=== PATIENT | female | born 1975 ===

== ENCOUNTER 2021-06-27 17:55 | Emergency (ER) | payer OTHER, SELFPAY ==
--- NOTE | ~2021-06-27 | XR_ITS ---
EXAMINATION: XR LUMBOSACRAL SPINE CLINICAL INFORMATION: Pain. COMPARISON: None. TECHNIQUE: Three views of the lumbosacral spine. FINDINGS: There are 5 nonrib-bearing lumbar-type vertebral bodies without evidence of acute compression deformities or malalignment. Posterior elements are maintained. There is moderate disc space narrowing with subcortical sclerosis and facet arthropathy at L5-S1 where there is probably certain degree of central canal stenosis and neural foraminal encroachment. Other disc spaces and neural foraminal are maintained. Moderate stool burden throughout the colon. XR/XR lumbar spine 2-3V IMPRESSION: No acute fractures or malalignment. Moderate degenerative changes at L5-S1 with some degree of neural foraminal encroachment and central canal narrowing which could be better assessed with an MR of the lumbar spine if clinically indicated.
[2021-06-27 18:28] VITALS: BP 142/49; PULSE 75; RESP 16; TEMP 36.5; O2SAT 97; BMI 31.4
--- NOTE | 2021-06-27 20:17 | ED_ITS ---
HPI - Back Pain/Injury General Chief Complaint: Back Pain/Injury Stated Complaint: Back pain Time Seen by Provider: 06/27/21 19:56 Source: patient Mode of arrival: ambulatory Limitations: no limitations History of Present Illness HPI Narrative: Patient presents to ED for chronic back pain since May. Patient states after his lifting heavy object at work patient states she has had back pain ever since. Patient denies any blunt trauma to the back, abdominal pain, nausea, vomiting, fever, chills, dysuria, hematuria, or urinary/bowel incontinence. 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 Patient states back pain radiating down left leg. MD elicited complaint: back pain Related Data Previous Rx's Medication Instructions Recorded ketorolac 10 mg tablet 10 mg PO QID PRN 5 Days #20 tab 06/27/21 oxycodone-acetaminophen 5 mg-325 1 tab PO TID PRN #9 tab 06/27/21 mg tablet (Percocet) prednisone 20 mg tablet 60 mg PO DAILY 5 Days #15 tab 06/27/21 Allergies Allergy/AdvReac Type Severity Reaction Status Date / Time No Known Allergies Allergy Unverified 06/03/20 15:17 [No Known Allergies*] Review of Systems Review of Systems: Yes all other systems are reviewed and are negative Constitutional: Constitutional: Reports as per HPI and Reports no additional constitutional complaints Eyes: Eyes: Reports as per HPI and Reports no additional eye complaints ENT: Reports system reviewed and no additional complaints, except as documented and Reports as per HPI Cardiovascular: Cardiovascular: Reports as per HPI and Reports no additional cardiovascular complaints Respiratory: Respiratory: Reports as per HPI and Reports no additional respiratory complaints Gastrointestinal: Gastrointestinal: Reports as per HPI and Reports no additional gastrointestinal complaints Genitourinary: Genitourinary: Reports no additional female genitourinary complaints and Reports as per HPI Musculoskeletal: Musculoskeletal: Reports no additional musculoskeletal complaints, Reports as per HPI and Reports back pain Neurologic: Reports system reviewed and no additional complaints, except as documented and Reports as per HPI Psychiatric: Psychiatric: Reports no additional psychiatric complaints and Reports as per HPI PMFSH Past Medical History Medical History (Updated 06/27/21 @ 20:22 by JEAN-PIERRE Browne) Asthma Migraines Social History Social History Advance Directives: No Physical Exam Vital Signs: Vital Signs: Last Vital Signs Temp 97.7 F 06/27/21 18:28 Pulse 75 06/27/21 18:28 Resp 16 06/27/21 18:28 BP 142/49 H 06/27/21 18:28 Pulse Ox 97 06/27/21 18:28 Body Mass Index 31.4 Const: General: cooperative, healthy appearing, comfortable, no acute distress, well developed, alert, awake and Physically active Orientation/consciousness: patient oriented x3 HENMT: Head: Yes normal to inspection, Yes No palpable skull fracture present, Yes normocephalic, Yes atraumatic and No abrasion Eyes: General: appearance normal, both eyes and all related structures Neck: Neck: Yes normal visual inspection, Yes full ROM, Yes no lymphadenopathy, Yes no meningeal signs, Yes trachea midline, Yes supple and No tender Chest: Chest palpation & inspection: normal inspection of the chest and normal palpation of entire chest wall Resp: Effort & Inspection: normal respiratory effort and able to speak in complete sentences Auscultation: clear to auscultation bilaterally Cardio: Jugular venous distension: no JVD Heart sounds: S1 normal heart sound present and S2 normal heart sound present GI: Inspection: Yes normal to inspection and No abdominal wall ecchymosis Palpation (GI): Soft to palpation, not firm, nontender, no guarding and not rigid : General: No CVA tenderness and Yes no CVA tenderness Back/Spine/Pelvis: Other: Patient has good rectal tone on rectal exam. Negative for saddle anesthesia. Patient had sensation throughout saddle. Jean-Pierre de los santos has normal gait. Back: no CVA tenderness, No CVA tenderness and back tenderness (Lumbar spine tenderness) Skin: General skin exam: no rashes or lesions noted and elasticity normal Neuro: General: patient oriented x3, gait normal, no meningeal signs and CN's II-XI intact bilaterally Cranial nerves: Yes CN's II-XII intact bilaterally Extrem: General: Yes normal to inspection and Yes full ROM Psych: Appearance: grossly normal, well kempt and not disheveled Course Course Course Narrative: Sent for lumbar spine x-ray. Reevaluation(s) Reevaluation #1: Lumbar spine x-ray shows severe arthritis with encroachment. History, physical exam, and x-ray results discussed with Dr. Acevedo and we both agreed patient presentation does not indicate cauda equina syndrome. Not suspecting any spinal abscess. Patient denies any IV drug use Time: 20:21 MDM - Back Pain/Injury MDM Narrative Medical decision making narrative: Lumbar radiculopathy Discharge Plan Discharge Clinical Impression: Lumbar radiculopathy Patient Disposition: Home, Self-Care Instructions: Lumbar Radiculopathy (ED) Additional Instructions: Return to the ED immediately for any urinary/bowel incontinence, paralysis of lower extremity, numbness/tingling, inability to walk, flank pain, fever, chills, nausea, vomiting, abdominal pain, dysuria, hematuria, or any other concerning symptoms. Please follow-up with PCP you may need MRI to evaluate for possible nerve impingement. Prescriptions: New ketorolac 10 mg tablet 10 mg PO QID PRN (Reason: pain) 5 Days Qty: 20 RF: 0 prednisone 20 mg tablet 60 mg PO DAILY 5 Days Qty: 15 RF: 0 oxycodone-acetaminophen [Percocet] 5-325 mg tablet 1 tab PO TID PRN (Reason: pain) Qty: 9 RF: 0 Stand Alone Forms: Work/School Release Interventions: ED Discharge Assessment Last Done: 06/27/21 20:47 Discharge Date/Time: 06/27/21 20:48 Print Language: Khmer
[2021-06-27] MEDS: oxyCODONE HCl Immed Release 5 MG TABLET PO (20:38)
[2021-06-27] MEDS: predniSONE 20 MG TABLET 60 MG PO (20:38)
[2021-06-27] MEDS: Ketorolac Tromethamine 15 MG/ML VIAL 30 MG IM (20:39)
== END 2021-06-27 20:48 | disposition home or self-care (01) ==
PROVIDERS: Emergency Provider Internal Medicine; PCP Internal Medicine
DX: M47.26 Other spondylosis with radiculopathy, lumbar region (principal)
CPT/HCPCS: 72100; 96372; 99284; J1885

== ENCOUNTER 2021-09-19 11:10 | Outpatient (REF) | payer OTHER, SELFPAY ==
[2021-09-19 12:57] LABS: COVID-19 Test Negative (Negative); IDNOW Serial# 55D5AD1C
== END 2021-09-19 11:11 | disposition home or self-care (01) ==
LOC: HO.LAB 11:10
PROVIDERS: Visit Provider Internal Medicine
DX: Z20.822 Contact with and (suspected) exposure to COVID-19 (principal)
CPT/HCPCS: 36415; 87635; C9803

== ENCOUNTER 2021-09-30 09:00 | Outpatient (RCR) | payer OTHER, SELFPAY | END 2021-10-26 14:37 | disposition home or self-care (01) | LOC: HO.PT 09:00 | PROVIDERS: Visit Provider Nurse Practitioner Family | DX: R26.81 Unsteadiness on feet (principal); M54.50 Low back pain, unspecified | CPT/HCPCS: 97110; 97140; 97161 ==

== ENCOUNTER 2021-11-22 14:32 | Emergency (ER) | payer OTHER, SELFPAY ==
--- NOTE | ~2021-11-22 | XR_ITS ---
EXAMINATION: XR CHEST CLINICAL INFORMATION: Upper respiratory tract infection COMPARISON: Previous chest x-ray March 2019 TECHNIQUE: Frontal view of the chest was obtained. FINDINGS: No significant abnormality is noted involving the heart, lungs, mediastinum, bony thorax or soft tissues. XR/XR chest 1V IMPRESSION: Unremarkable examination.
[2021-11-22 15:33] VITALS: BP 130/67; PULSE 91; RESP 18; TEMP 36.4; O2SAT 98; BMI 29.0
--- NOTE | 2021-11-22 15:36 | ECG_ITS ---
Test Reason : CHEST PAIN Blood Pressure : / mmHG Vent. Rate : 087 BPM Atrial Rate : 087 BPM P-R Int : 158 ms QRS Dur : 084 ms QT Int : 366 ms P-R-T Axes : 019 -18 022 degrees QTc Int : 440 ms Normal sinus rhythm Normal ECG No previous ECGs available Referred By: Generic ED Physician Electronically Signed By:GAURAV ALCALA MD
[2021-11-22 16:27] LABS: MANUAL DIFF FLAG NO
[2021-11-22 16:33] LABS: Basophils Percent Auto 0.3 % (0-2); Eosinophils Percent Auto 8.8 % (0-4); Hematocrit 39.6 % (37.0-47.0); Hemoglobin 12.7 g/dl (12.0-16.0); Imm Gran Abs Auto 0.06 X10*3/uL (0.00-0.03); Imm Gran Pct Auto 0.5 % (0.0-0.4); Lymphocytes Absolute Auto 1.5 X10*3/uL (1.2-4.9); Lymphocytes Percent Auto 13.2 % (20-40); Mean Corpuscular HGB Conc 32.1 g/dl (31.0-35.0); Mean Platelet Volume 10.8 fL (9.4-12.3); Monocytes Absolute Auto 1.2 X10*3/uL (0.1-1.2); Monocytes Percent Auto 10.6 % (2-11); Neutrophils Absolute Auto 7.8 x10*3/uL (2.0-8.3); Neutrophils Percent Auto 66.6 % (45-73); Platelet Count 214 X10*3/uL (160-400); Red Blood Count 4.89 X10*6/uL (4.20-5.50); Red Cell Distribution Width 15.5 % (11.0-16.0); White Blood Count 11.7 X10*3/uL (4.8-10.8)
[2021-11-22 16:41] LABS: Anion Gap 12 (12-20); Blood Urea Nitrogen 10 mg/dL (9-16); Calcium 9.3 mg/dL (8.4-10.2); Carbon Dioxide 28 mmol/L (22-29); Chloride 105 mmol/L (96-108); Creatinine Clr Calc Pharmacy 97.2; Estimated Glomerular Filt Rate > 60; Glucose Random 100 mg/dL (60-115); Potassium 4.6 mmol/L (3.3-5.1); Sodium 140 mmol/L (135-145)
[2021-11-22 16:43] LABS: COVID-19 Test Negative (Negative)
[2021-11-22 19:56] VITALS: BP 134/73; PULSE 91; RESP 18; TEMP 36.9; O2SAT 98
[2021-11-22 20:00] VITALS: BP 125/62; PULSE 81; RESP 16; TEMP 36.8; O2SAT 100
--- NOTE | 2021-11-22 20:01 | PC.NURSE ---
pt a&ox3, cough started yesterday, now having 8/10 left flank pain while coughing, pt denies chest pain/sob, pt last ate this morning, migraine started ~1hr ago in waiting room w nausea - tried eating a doughnut in waiting room & caused pt to vomit, vss, pending provider.
--- NOTE | 2021-11-22 20:08 | ED.GENADULT ---
HPI - General Adult General Chief complaint: General Medical Stated complaint: CP/SOB/Cough Time Seen by Provider: 11/22/21 20:08 Source: patient Mode of arrival: ambulatory Limitations: no limitations History of Present Illness HPI narrative: Patient with coughing mostly dry cough for last few days feel like cold-like symptoms no shortness of breath has body aches low-grade fever Related Data Previous Rx's Medication Instructions Recorded ketorolac 10 mg tablet 10 mg PO QID PRN 5 Days #20 tab 06/27/21 oxycodone-acetaminophen 5 mg-325 1 tab PO TID PRN #9 tab 06/27/21 mg tablet (Percocet) prednisone 20 mg tablet 60 mg PO DAILY 5 Days #15 tab 06/27/21 amoxicillin 875 mg-potassium 1 tab PO BID #20 tab 11/22/21 clavulanate 125 mg tablet Allergies Allergy/AdvReac Type Severity Reaction Status Date / Time No Known Allergies Allergy Unverified 06/03/20 15:17 [No Known Allergies*] Review of Systems Review of Systems: Yes all other systems are reviewed and are negative [facility] Past Medical History Medical History Asthma Migraines Social History Social History Alcohol intake: never Patient Tobacco Use Status: Former Tobacco user Use of substances other than those prescribed or required for medical reasons: No Advance Directives: No Advance Directives Information Provided: Yes Physical Exam ED Vital Signs: Vital Signs - 24 hr 11/22/21 15:33 11/22/21 19:56 Temperature 97.6 F 98.4 F Pulse Rate 91 91 Respiratory Rate 18 18 Blood Pressure 130/67 134/73 Pulse Oximetry 98 98 BMI result Body Mass Index 29.0 Appearance: Alert. Oriented X3. No acute distress. Eyes:no pallor/icterus ENT: Pharynx normal. Oral Mucosa moist Neck: Normal inspection. Neck supple. CVS: Normal heart rate and rhythm. Pulses normal. Respiratory: No respiratory distress. Equal air entry bilateral, no wheezing/rales/rhonchi Abdomen: Soft and nontender. Bowel sounds are present, no mass palpable, Skin: Skin warm and dry. Normal skin color. Normal skin turgor. Extremities: No lower extremity edema. No calf tenderness Neuro: Oriented X 3. Medical Decision Making Lab Data Lab results reviewed: Yes I reviewed the patient's lab results. Result diagrams: 11/22/21 16:17 11/22/21 16:17 Labs: Lab Results 11/22/21 11/22/21 11/22/21 Range/Units 16:17 16:17 16:17 WBC 11.7 H (4.8-10.8) X10*3/uL RBC 4.89 (4.20-5.50) X10*6/uL Hgb 12.7 (12.0-16.0) g/dl Hct 39.6 (37.0-47.0) % MCV 81.0 (80.0-98.0) fL MCH 26.0 L (27.0-33.0) pg MCHC 32.1 (31.0-35.0) g/dl RDW 15.5 (11.0-16.0) % Plt Count 214 (160-400) X10*3/uL MPV 10.8 (9.4-12.3) fL Immature Gran % (Auto) 0.5 H (0.0-0.4) % Neut % (Auto) 66.6 (45-73) % Lymph % (Auto) 13.2 L (20-40) % Grundy % (Auto) 10.6 (2-11) % Eos % (Auto) 8.8 H (0-4) % Baso % (Auto) 0.3 (0-2) % Lymph # (Auto) 1.5 (1.2-4.9) X10*3/uL Grundy # (Auto) 1.2 (0.1-1.2) X10*3/uL Eos # (Auto) 1.0 H (0.0-0.4) X10*3/uL Baso # (Auto) 0.0 (0.0-0.2) X10*3/uL Abs Immat Gran (auto) 0.06 H (0.00-0.03) X10*3/uL Absolute Neuts (auto) 7.8 (2.0-8.3) x10*3/uL Absolute Nucleated RBC 0.000 (0.0-0.012) X10*3/uL Nucleated RBC % (auto) 0.0 (0.0-0.2) /100WBC Sodium 140 (135-145) mmol/L Potassium 4.6 (3.3-5.1) mmol/L Chloride 105 (96-108) mmol/L Carbon Dioxide 28 (22-29) mmol/L Anion Gap 12 (12-20) BUN 10 (9-16) mg/dL Creatinine 0.66 (0.5-1.4) mg/dL Estim Creat Clear Calc 97.2 Estimated GFR > 60 Random Glucose 100 (60-115) mg/dL Calcium 9.3 (8.4-10.2) mg/dL Urine Color Urine Appearance Urine pH (5.0-8.0) Ur Specific Keystone (1.005-1.025) Urine Protein (NEG-TRACE) MG/DL Urine Glucose (UA) (NEG) MG/DL Urine Ketones (NEG) MG/DL Urine Blood (NEG) Urine Nitrite (NEG) Ur Leukocyte Esterase (NEG) Urine RBC (0) /HPF Urine WBC (0-4) /HPF Ur Squamous Epith Cells /LPF Urine Bacteria /LPF Urine Test (NEGATIVE) COVID-19 (CARI) Negative (Negative) COVID-19 Clin Com See Note Influenza Type A (MYLENE) (Negative) Influenza Type B (MYLENE) (Negative) Influenza A & B Note 11/22/21 11/22/21 11/22/21 Range/Units 20:27 20:44 20:44 WBC (4.8-10.8) X10*3/uL RBC (4.20-5.50) X10*6/uL Hgb (12.0-16.0) g/dl Hct (37.0-47.0) % MCV (80.0-98.0) fL MCH (27.0-33.0) pg MCHC (31.0-35.0) g/dl RDW (11.0-16.0) % Plt Count (160-400) X10*3/uL MPV (9.4-12.3) fL Immature Gran % (Auto) (0.0-0.4) % Neut % (Auto) (45-73) % Lymph % (Auto) (20-40) % Grundy % (Auto) (2-11) % Eos % (Auto) (0-4) % Baso % (Auto) (0-2) % Lymph # (Auto) (1.2-4.9) X10*3/uL Grundy # (Auto) (0.1-1.2) X10*3/uL Eos # (Auto) (0.0-0.4) X10*3/uL Baso # (Auto) (0.0-0.2) X10*3/uL Abs Immat Gran (auto) (0.00-0.03) X10*3/uL Absolute Neuts (auto) (2.0-8.3) x10*3/uL Absolute Nucleated RBC (0.0-0.012) X10*3/uL Nucleated RBC % (auto) (0.0-0.2) /100WBC Sodium (135-145) mmol/L Potassium (3.3-5.1) mmol/L Chloride (96-108) mmol/L Carbon Dioxide (22-29) mmol/L Anion Gap (12-20) BUN (9-16) mg/dL Creatinine (0.5-1.4) mg/dL Estim Creat Clear Calc Estimated GFR Random Glucose (60-115) mg/dL Calcium (8.4-10.2) mg/dL Urine Color STRAW Urine Appearance CLEAR Urine pH 6.0 (5.0-8.0) Ur Specific Key[place] 1.020 (1.005-1.025) Urine Protein NEG (NEG-TRACE) MG/DL Urine Glucose (UA) NEG (NEG) MG/DL Urine Ketones NEG (NEG) MG/DL Urine Blood 1+ H (NEG) Urine Nitrite NEG (NEG) Ur Leukocyte Esterase NEG (NEG) Urine RBC 1-4 (0) /HPF Urine WBC 0-2 (0-4) /HPF Ur Squamous Epith Cells 2+ /LPF Urine Bacteria NONE /LPF Urine Test NEGATIVE (NEGATIVE) COVID-19 (CARI) (Negative) COVID-19 Clin Com Influenza Type A (MYLENE) Negative (Negative) Influenza Type B (MYLENE) Negative (Negative) Influenza A & B Note See Note Discharge Plan Discharge Clinical Impression: Acute bronchitis Patient Disposition: Home, Self-Care Instructions: Acute Bronchitis (ED) Additional Instructions: Drink plenty of fluid Antibiotic as advised Prescriptions: New amoxicillin-pot clavulanate 875-125 mg tablet 1 tab PO BID Qty: 20 0RF No Action ketorolac 10 mg tablet 10 mg PO QID PRN (Reason: pain) 5 Days Qty: 20 0RF Rx Instructions: patient received IM 30 toradol in the ED. prednisone 20 mg tablet 60 mg PO DAILY 5 Days Qty: 15 0RF oxycodone-acetaminophen [Percocet] 5-325 mg tablet 1 tab PO TID PRN (Reason: pain) Qty: 9 0RF Rx Instructions: side effect is drowsiness. Do not take at work or while driving. Interventions: ED Discharge Assessment Last Done: 11/22/21 20:56 Discharge Date/Time: 11/22/21 20:59
--- NOTE | 2021-11-22 20:42 | PC.NURSE ---
pt a&ox3, vss, pt resting quietly, urine sent to lab, reports decrease in pain (5/10), nausea intermittent, will continue to monitor.
[2021-11-22 20:47] LABS: Influenza A Negative (Negative); Influenza B2 Negative (Negative)
[2021-11-22 20:51] LABS: Appearance Urine CLEAR; Color Urine STRAW; Glucose Urine UA NEG (NEG); Leukocyte Esterase Urine NEG (NEG); Nitrite Urine NEG (NEG); UACC Culture Trigger NO; Urine Blood 1+ (NEG); Urine Ketones NEG (NEG); Urine Protein NEG (NEG-TRACE)
[2021-11-22 20:54] LABS: UPreg QC Valid YES; Urine Pregnancy NEGATIVE (NEGATIVE)
[2021-11-22 20:58] LABS: Squamous Epithelial Cell Urine 2+ /LPF; WBC Urine 0-2 /HPF (0-4)
[2021-11-22] MEDS: Amoxicillin/Potassium Clav 875 MG TABLET PO (20:58)
--- NOTE | 2021-11-22 20:58 | PC.NURSE ---
pt medicated per order
== END 2021-11-22 20:59 | disposition home or self-care (01) ==
PROVIDERS: Emergency Provider Internal Medicine; PCP Internal Medicine
DX: J20.9 Acute bronchitis, unspecified (principal); Z20.822 Contact with and (suspected) exposure to COVID-19
CPT/HCPCS: 71045; 80048; 81001; 81025; 85025; 87502; 87635; 93005; 99283; 99284

== ENCOUNTER 2022-01-23 21:19 | Emergency (ER) | payer OTHER, SELFPAY ==
--- NOTE | 2022-01-23 | ECG_ITS ---
Test Reason : CHEST PAIN Blood Pressure : / mmHG Vent. Rate : 065 BPM Atrial Rate : 065 BPM P-R Int : 176 ms QRS Dur : 086 ms QT Int : 420 ms P-R-T Axes : 022 -14 019 degrees QTc Int : 436 ms Normal sinus rhythm Normal ECG When compared with ECG of 22-NOV-2021 16:06, No significant change was found Referred By: Generic ED Physician Electronically Signed By:GAURAV ALCALA MD
--- NOTE | ~2022-01-23 | XR_ITS ---
EXAMINATION: XR CHEST CLINICAL INFORMATION: Cough COMPARISON: 11/22/2021 TECHNIQUE: Frontal view of the chest was obtained. FINDINGS: The lungs are well expanded. There is no focal consolidation, edema, or effusion. No pneumothorax. The cardiomediastinal silhouette is within normal limits. No acute osseous abnormality. XR/XR chest 1V IMPRESSION: Clear lungs.
[2022-01-23 22:43] VITALS: BP 131/77; PULSE 68; RESP 16; TEMP 36.6; O2SAT 98; BMI 30.8
--- NOTE | 2022-01-24 01:02 | ED.URI ---
HPI - URI/Sore Throat General Chief Complaint: Upper Respiratory Symptoms Stated Complaint: Cough/Chest pain Time Seen by Provider: 01/24/22 00:36 Source: patient Mode of arrival: ambulatory Limitations: no limitations History of Present Illness HPI Narrative: Patient comes to the emergency room complaining of cough for 2 weeks. Patient denies chest pain, no shortness of breath. Patient denies any exposure to COVID or influenza patients. Patient states that a few months ago patient was diagnosed with bronchitis. Patient did recover. Patient has been using her inhaler more than usual, last time she received treatment was well over 24 hours ago. Otherwise patient has no symptoms, denies fever chills, no vomiting or diarrhea. Patient is an immunized for COVID-19 Related Data Previous Rx's Medication Instructions Recorded ketorolac 10 mg tablet 10 mg PO QID PRN 5 Days #20 tab 06/27/21 oxycodone-acetaminophen 5 mg-325 1 tab PO TID PRN #9 tab 06/27/21 mg tablet (Percocet) prednisone 20 mg tablet 60 mg PO DAILY 5 Days #15 tab 06/27/21 amoxicillin 875 mg-potassium 1 tab PO BID #20 tab 11/22/21 clavulanate 125 mg tablet prednisone 50 mg tablet 50 mg PO DAILY #5 tab 01/24/22 Allergies Allergy/AdvReac Type Severity Reaction Status Date / Time No Known Allergies Allergy Unverified 06/03/20 15:17 [No Known Allergies*] Review of Systems Review of Systems: Constitutional : No Weight loss, No Fever, No Chills, No Night Sweats, No Fatigue, No Malaise ENT/Mouth : No Hearing loss, No Ear Pain, No Nasal Congestion, No Sinus Pain, No Hoarseness, No sore throat, No Rhinorrhea, No Swallowing Difficulty Eyes: No Eye Pain, No Swelling, No Redness, No Foreign Body, No Discharge, No Vision Changes Cardiovascular : No Chest Pain, No SOB, No Dyspnea on Exertion, No Orthopnea, No Edema, No Palpitations Respiratory : Complaining of dry Cough, No Sputum, No Wheezing, No Smoke Exposure, No Dyspnea Gastrointestinal : No Nausea, No Vomiting, No Diarrhea, No Constipation, No abdominal Pain, No Hematochezia, No Melena Genitourinary : no irregular bleeding, No Dysuria, No Urinary Frequency, No Hematuria, No Urinary Incontinence, No Urgency, No Flank Pain, No Urinary Flow Changes, No Hesitancy Musculoskeletal : No joint pain, No Myalgias, No Joint Swelling Skin : No Skin Lesions, No rash Neuro : No Weakness, No Numbness, No Paresthesias, No Loss of Consciousness, No Dizziness, No Headache Psych : No Anxiety/Panic, No Depression, No SI/HI/AH/VH, No Social Issues, Heme/Lymph: No Bruising, No Bleeding,No Lymphadenopathy Endocrine : No Polyuria, No Polydipsia, No Temperature Intolerance REPLACED BY [facility] Past Medical History Medical History Asthma Migraines Social History Social History Alcohol intake: never Patient Tobacco Use Status: Former Tobacco user Advance Directives: No Physical Exam Vital Signs: Vital Signs: Last Vital Signs Temp 97.8 F 01/23/22 22:43 Pulse 68 01/23/22 22:43 Resp 16 01/23/22 22:43 BP 131/77 01/23/22 22:43 Pulse Ox 98 01/23/22 22:43 BMI result Body Mass Index 30.8 Const: Other: Appearance: Alert. Oriented X3. No acute distress. Well-appearing Eyes: Pupils equal, round and reactive to light. ENT: Pharynx normal. Neck: Normal inspection. Neck supple. No lymph nodes noted. No crepitus CVS: Normal heart rate and rhythm. Pulses normal. Normal S1 and S2 Respiratory: No respiratory distress. Breath sounds normal. No Wheezing. No rales Abdomen: Soft and nontender. No rigidity. No distention. Skin: Skin warm and dry. Normal skin color. Normal skin turgor. Extremities: No lower extremity edema. No Lacerations. No Rash Neuro: Oriented X 3. No motor deficit. No sensory deficit. Moving all extremities. No slurred speech. CN 2 through 12 grossly intact Psych: calm, cooperative, normal affect Course Course Course Narrative: Patient's physical exam is unremarkable. COVID and flu test pending and a chest x-ray. Patient likely having viral bronchitis. I discussed with the patient that she tested positive for COVID-19. As mentioned above, patient is an immunized. Patient has been symptomatic for 14 days, at this time, she does not qualify for oral antivirals or monoclonal antibodies. Patient's oxygen saturation is 98% on room air, even with exertion in her room. Patient is not hypoxic. However, patient does have history of asthma, using her in nebulization treatments more often. Patient would benefit from prednisone. At this time, patient does not need a breathing treatment. MDM - URI/Sore Throat Lab Data Labs: Lab Results 01/24/22 01/24/22 Range/Units 00:45 00:45 COVID-19 (CARI) Positive A (Negative) COVID-19 Clin Com See Note Influenza Type A (MYLENE) Negative (Negative) Influenza Type B (MYLENE) Negative (Negative) Influenza A & B Note See Note Imaging Data Chest x-ray: Radiologist's impression: FINDINGS: The lungs are well expanded. There is no focal consolidation, edema, or effusion. No pneumothorax. The cardiomediastinal silhouette is within normal limits. No acute osseous abnormality. XR/XR chest 1V IMPRESSION: Clear lungs. Discharge Plan Discharge Clinical Impression: COVID-19 Patient Disposition: Home, Self-Care Instructions: COVID-19 (Coronavirus Disease 2019) (ED) Additional Instructions: You need to quarantine for 5 days. Please have your direct family tested for COVID-19. Please follow-up with your primary care physician tomorrow. If you have any worsening or new symptoms, please return to the emergency room or call 911 Prescriptions: New prednisone 50 mg tablet 50 mg PO DAILY Qty: 5 0RF No Action ketorolac 10 mg tablet 10 mg PO QID PRN (Reason: pain) 5 Days Qty: 20 0RF Rx Instructions: patient received IM 30 toradol in the ED. prednisone 20 mg tablet 60 mg PO DAILY 5 Days Qty: 15 0RF oxycodone-acetaminophen [Percocet] 5-325 mg tablet 1 tab PO TID PRN (Reason: pain) Qty: 9 0RF Rx Instructions: side effect is drowsiness. Do not take at work or while driving. amoxicillin-pot clavulanate 875-125 mg tablet 1 tab PO BID Qty: 20 0RF
[2022-01-24 01:11] LABS: IDNOW Serial# 08D9AD1C; Influenza A Negative (Negative); Influenza B2 Negative (Negative)
[2022-01-24 01:12] LABS: COVID-19 Test Positive (Negative)
== END 2022-01-24 01:52 | disposition home or self-care (01) ==
PROVIDERS: Emergency Provider Emergency Medicine
DX: U07.1 COVID-19 (principal); R05.9 Cough, unspecified; R07.89 Other chest pain; Z79.899 Other long term (current) drug therapy; Z87.891 Personal history of nicotine dependence
CPT/HCPCS: 71045; 87502; 87635; 93005; 99283

== ENCOUNTER 2022-02-20 18:08 | Emergency (ER) | payer OTHER, SELFPAY ==
--- NOTE | ~2022-02-20 | CT_ITS ---
EXAMINATION: CTA CHEST PE STUDY CLINICAL INFORMATION: Elevated D-dimer. PE? COMPARISON: Chest x-ray today TECHNIQUE: Prior to contrast administration, noncontrast localization images were obtained. After the administration of 62 mL of Omnipaque nonionic IV contrast, contiguous thin slice helical images were obtained through the thorax. Reformatted MIP images in the coronal and sagittal planes were obtained at the acquisition workstation. This CT examination was performed using dose optimization techniques as appropriate, variously including the following: *Automated exposure control *Adjustment of mA and/or kV according to patient size (this includes techniques or standardized protocols for targeted exams where dose is matched to indication/reason for exam; i.e. extremities or head) *Use of iterative reconstruction technique DLP: 283 mGy-cm. FINDINGS: The bolus timing on this study was acceptable for visualization of the pulmonary arterial tree. There are no intraluminal pulmonary arterial filling defects present to suggest pulmonary embolism. Inferior distal branch vessels are less well delineated due to respiratory motion artifact Mild dependent atelectatic change. No abnormal pulmonary nodules or masses are appreciated. No significant hilar or mediastinal adenopathy. There is no evidence of pleural effusion or pneumothorax. The heart is normal in size. No evidence of ventricular septal bowing or right heart strain. Great vessels are normal. Otherwise the mediastinum is unremarkable. There is no pericardial effusion or pericardial thickening. Limited evaluation of the upper abdominal viscera is unremarkable. CT/CT angio chest PE protocol IMPRESSION: Although the inferior aspect of the chest is degraded by respiratory motion artifact, I do not appreciate any evidence for central or segmental pulmonary emboli. Mild basilar atelectasis noted. VTE: Negative
--- NOTE | ~2022-02-20 | XR_ITS ---
EXAMINATION: XR CHEST CLINICAL INFORMATION: Resolved SOB. COMPARISON: None TECHNIQUE: Frontal view of the chest was obtained. FINDINGS: No significant abnormality is noted involving the heart, lungs, mediastinum, bony thorax or soft tissues. XR/XR chest 1V IMPRESSION: Unremarkable chest examination.
[2022-02-20 18:16] VITALS: BP 157/77; PULSE 77; RESP 18; TEMP 36.6; O2SAT 97; BMI 30.8
--- NOTE | 2022-02-20 18:17 | ECG_ITS ---
Test Reason : PALPITATIONS Blood Pressure : / mmHG Vent. Rate : 073 BPM Atrial Rate : 073 BPM P-R Int : 156 ms QRS Dur : 090 ms QT Int : 398 ms P-R-T Axes : 031 -13 023 degrees QTc Int : 438 ms Normal sinus rhythm Normal ECG When compared with ECG of 23-JAN-2022 21:58, No significant change was found Referred By: Generic ED Physician Electronically Signed By:CONCEPCION DONOVAN
[2022-02-20 19:20] LABS: MANUAL DIFF FLAG NO
[2022-02-20 19:23] LABS: Basophils Percent Auto 0.2 % (0-2); Eosinophils Absolute Auto 0.4 X10*3/uL (0.0-0.4); Eosinophils Percent Auto 4.1 % (0-4); Hematocrit 35.9 % (37.0-47.0); Hemoglobin 11.6 g/dl (12.0-16.0); Imm Gran Abs Auto 0.04 X10*3/uL (0.00-0.03); Imm Gran Pct Auto 0.4 % (0.0-0.4); Lymphocytes Percent Auto 19.9 % (20-40); Mean Corpuscular HGB Conc 32.3 g/dl (31.0-35.0); Mean Corpuscular Hemoglobin 25.6 pg (27.0-33.0); Mean Corpuscular Volume 79.2 fL (80.0-98.0); Mean Platelet Volume 10.2 fL (9.4-12.3); Monocytes Absolute Auto 1.2 X10*3/uL (0.1-1.2); Monocytes Percent Auto 11.7 % (2-11); Neutrophils Absolute Auto 6.3 x10*3/uL (2.0-8.3); Neutrophils Percent Auto 63.7 % (45-73); Platelet Count 275 X10*3/uL (160-400); Red Blood Count 4.53 X10*6/uL (4.20-5.50); Red Cell Distribution Width 15.5 % (11.0-16.0); White Blood Count 9.9 X10*3/uL (4.8-10.8)
[2022-02-20 19:42] VITALS: BP 160/50; PULSE 75; RESP 22; TEMP 37.1; O2SAT 99
[2022-02-20 19:46] LABS: Alanine Aminotransferase 16 U/L (0-31); Albumin Level 3.9 g/dL (3.5-5.0); Alkaline Phosphatase 69 U/L (39-117); Anion Gap 11 (12-20); Aspartate Amino Transferase 15 U/L (5-31); Bilirubin Total 0.2 mg/dL (0.0-1.0); Blood Urea Nitrogen 8 mg/dL (9-16); Calcium 8.9 mg/dL (8.4-10.2); Carbon Dioxide 27 mmol/L (22-29); Chloride 105 mmol/L (96-108); Creatinine Clr Calc Pharmacy 96.1; Estimated Glomerular Filt Rate > 60; Glucose Random 94 mg/dL (60-115); Sodium 139 mmol/L (135-145); Total Protein 6.8 g/dL (6.5-8.0)
[2022-02-20 19:51] LABS: Troponin-I High Sensitivity < 3.5 ng/L (<3.5-17.0)
[2022-02-20 20:15] LABS: B Type Natriuretic Peptide 25 pg/mL (<100)
[2022-02-20 20:19] LABS: TSH reflex Free T4 2.53 uIU/mL (0.32-4.0)
[2022-02-20 20:22] LABS: Prothrombin Time 11.4 SEC (9.9-13.0)
[2022-02-20 20:24] LABS: D Dimer High Sensitivity 502 NG/ML
[2022-02-20 20:25] LABS: Partial Thromboplastin Time 28.7 SEC (24.1-38.0)
[2022-02-20 20:26] LABS: COVID-19 Test Negative (Negative)
--- NOTE | 2022-02-20 20:41 | ED_ITS ---
HPI - General Adult General Chief complaint: Arrhythmia/Palpitations Stated complaint: Palpitations Time Seen by Provider: 02/20/22 19:31 Source: patient Mode of arrival: ambulatory Limitations: no limitations History of Present Illness HPI narrative: 47-year-old female presents to ED for palpitations for 1 week. Patient states shortness of breath when she feels the palpitations. Patient denies any slurred speech, facial droop, paralysis of extremities, headache, dizziness, coughing up blood, leg swelling, recent long travel, recent surgery, or any estrogen hormonal use. Patient denies any recent trauma to the chest. Related Data Previous Rx's Medication Instructions Recorded ketorolac 10 mg tablet 10 mg PO QID PRN 5 Days #20 tab 06/27/21 oxycodone-acetaminophen 5 mg-325 1 tab PO TID PRN #9 tab 06/27/21 mg tablet (Percocet) prednisone 20 mg tablet 60 mg PO DAILY 5 Days #15 tab 06/27/21 amoxicillin 875 mg-potassium 1 tab PO BID #20 tab 11/22/21 clavulanate 125 mg tablet prednisone 50 mg tablet 50 mg PO DAILY #5 tab 01/24/22 Allergies Allergy/AdvReac Type Severity Reaction Status Date / Time No Known Allergies Allergy Unverified 06/03/20 15:17 [No Known Allergies*] Review of Systems Review of Systems: palpitations and shortness of breath only she has palpitations for one week. Yes all other systems are reviewed and are negative PMF Past Medical History Medical History Asthma Migraines Social History Social History Alcohol intake: never Patient Tobacco Use Status: Former Tobacco user Advance Directives: No Advance Directives Information Provided: No Physical Exam ED Vital Signs: Vital Signs - 24 hr 02/20/22 18:16 02/20/22 19:42 02/20/22 21:57 Temperature 97.9 F 98.7 F 98.7 F Pulse Rate 77 75 68 Respiratory Rate 18 22 H 16 Blood Pressure 157/77 H 160/50 H 131/76 Pulse Oximetry 97 99 99 02/21/22 00:20 Temperature 98.4 F Pulse Rate 64 Respiratory Rate 15 Blood Pressure 113/63 Pulse Oximetry 96 BMI result Body Mass Index 30.8 Const General: cooperative, healthy appearing, comfortable, no acute distress, well developed, alert, awake and Physically active Orientation/consciousness: patient oriented x3 [facility] Head: Yes normal to inspection, Yes No palpable skull fracture present, Yes normocephalic, Yes atraumatic and No abrasion Eyes General: appearance normal, both eyes and all related structures Neck Neck: Yes normal visual inspection, Yes full ROM, Yes no lymphadenopathy, Yes no meningeal signs, Yes trachea midline, Yes supple, No anterior neck swelling and No tender Chest Chest palpation & inspection: normal inspection of the chest and normal palpation of entire chest wall Resp Effort & Inspection: normal respiratory effort and able to speak in complete sentences Auscultation: clear to auscultation bilaterally Cardio Jugular venous distension: no JVD Heart sounds: S1 normal heart sound present and S2 normal heart sound present GI Inspection: Yes normal to inspection and No abdominal wall ecchymosis Palpation (GI): Soft to palpation, not firm, nontender, no guarding and not rigid General: No CVA tenderness and Yes no CVA tenderness Back/Spine/Pelvis Back: no CVA tenderness, No CVA tenderness and No back tenderness Skin General skin exam: no rashes or lesions noted and elasticity normal Neuro General: patient oriented x3, gait normal, no meningeal signs and CN's II-XI intact bilaterally Cranial nerves: Yes CN's II-XII intact bilaterally Extrem Other: Lower extremities negative for swelling, pitting edema, or calf tenderness General: Yes normal to inspection and Yes full ROM Psych Appearance: grossly normal and well kempt Course Course Course Narrative: Patient will have labs, EKG, thyroid level and D-dimer ordered due to recent COVID diagnosis there is no risk of pulmonary embolus. Patient well-appearing. Patient vital signs stable. Reevaluation(s) Reevaluation #1: Troponin negative after 1 week. EKG negative STEMI. BNP negative. Chest x-ray negative for pneumonia. Negative for signs of fluid overload CHF. D-dimer positive. COVID negative. Was sent for chest CTA. Time: 20:49 Reevaluation #2: Chest CTA negative. Second troponin negative. Thyroid level normal. Patient is safe for discharge. Diagnosis palpitation Time: 00:00 Medical Decision Making [facility] Narrative Medical decision making narrative: Palpitation Lab Data Result diagrams: 02/20/22 19:15 02/20/22 19:15 Labs: Lab Results 02/20/22 02/20/22 02/20/22 Range/Units 19:15 19:15 19:15 WBC 9.9 (4.8-10.8) X10*3/uL RBC 4.53 (4.20-5.50) X10*6/uL Hgb 11.6 L (12.0-16.0) g/dl Hct 35.9 L (37.0-47.0) % MCV 79.2 L (80.0-98.0) fL MCH 25.6 L (27.0-33.0) pg MCHC 32.3 (31.0-35.0) g/dl RDW 15.5 (11.0-16.0) % Plt Count 275 D (160-400) X10*3/uL MPV 10.2 (9.4-12.3) fL Immature Gran % (Auto) 0.4 (0.0-0.4) % Neut % (Auto) 63.7 (45-73) % Lymph % (Auto) 19.9 L (20-40) % [place] % (Auto) 11.7 H (2-11) % Eos % (Auto) 4.1 H (0-4) % Baso % (Auto) 0.2 (0-2) % Lymph # (Auto) 2.0 (1.2-4.9) X10*3/uL [place] # (Auto) 1.2 (0.1-1.2) X10*3/uL Eos # (Auto) 0.4 (0.0-0.4) X10*3/uL Baso # (Auto) 0.0 (0.0-0.2) X10*3/uL Abs Immat Gran (auto) 0.04 H (0.00-0.03) X10*3/uL Absolute Neuts (auto) 6.3 (2.0-8.3) x10*3/uL Absolute Nucleated RBC 0.000 (0.0-0.012) X10*3/uL Nucleated RBC % (auto) 0.0 (0.0-0.2) /100WBC PT (9.9-13.0) SEC INR (0.9-1.1) APTT (24.1-38.0) SEC D-Dimer High Sensitivty NG/ML Sodium 139 (135-145) mmol/L Potassium 4.0 (3.3-5.1) mmol/L Chloride 105 (96-108) mmol/L Carbon Dioxide 27 (22-29) mmol/L Anion Gap 11 L (12-20) BUN 8 L (9-16) mg/dL Creatinine 0.68 (0.5-1.4) mg/dL Estim Creat Clear Calc 96.1 Estimated GFR > 60 Random Glucose 94 (60-115) mg/dL Calcium 8.9 (8.4-10.2) mg/dL Total Bilirubin 0.2 (0.0-1.0) mg/dL AST 15 (5-31) U/L ALT 16 (0-31) U/L Alkaline Phosphatase 69 (39-117) U/L Troponin I High Sens < 3.5 (<3.5-17.0) ng/L B-Natriuretic Peptide 25 (<100) pg/mL Total Protein 6.8 (6.5-8.0) g/dL Albumin 3.9 (3.5-5.0) g/dL TSH 2.53 (0.32-4.0) uIU/mL Beta HCG, Quant < 2 mIU/mL COVID-19 (CARI) (Negative) COVID-19 Clin Com 02/20/22 02/20/22 02/20/22 Range/Units 19:58 19:58 22:29 WBC (4.8-10.8) X10*3/uL RBC (4.20-5.50) X10*6/uL Hgb (12.0-16.0) g/dl Hct (37.0-47.0) % MCV (80.0-98.0) fL MCH (27.0-33.0) pg MCHC (31.0-35.0) g/dl RDW (11.0-16.0) % Plt Count (160-400) X10*3/uL MPV (9.4-12.3) fL Immature Gran % (Auto) (0.0-0.4) % Neut % (Auto) (45-73) % Lymph % (Auto) (20-40) % [place] % (Auto) (2-11) % Eos % (Auto) (0-4) % Baso % (Auto) (0-2) % Lymph # (Auto) (1.2-4.9) X10*3/uL [place] # (Auto) (0.1-1.2) X10*3/uL Eos # (Auto) (0.0-0.4) X10*3/uL Baso # (Auto) (0.0-0.2) X10*3/uL Abs Immat Gran (auto) (0.00-0.03) X10*3/uL Absolute Neuts (auto) (2.0-8.3) x10*3/uL Absolute Nucleated RBC (0.0-0.012) X10*3/uL Nucleated RBC % (auto) (0.0-0.2) /100WBC PT 11.4 (9.9-13.0) SEC INR 1.0 (0.9-1.1) APTT 28.7 (24.1-38.0) SEC D-Dimer High Sensitivty 502 NG/ML Sodium (135-145) mmol/L Potassium (3.3-5.1) mmol/L Chloride (96-108) mmol/L Carbon Dioxide (22-29) mmol/L Anion Gap (12-20) BUN (9-16) mg/dL Creatinine (0.5-1.4) mg/dL Estim Creat Clear Calc Estimated GFR Random Glucose (60-115) mg/dL Calcium (8.4-10.2) mg/dL Total Bilirubin (0.0-1.0) mg/dL AST (5-31) U/L ALT (0-31) U/L Alkaline Phosphatase (39-117) U/L Troponin I High Sens < 3.5 (<3.5-17.0) ng/L B-Natriuretic Peptide (<100) pg/mL Total Protein (6.5-8.0) g/dL Albumin (3.5-5.0) g/dL TSH (0.32-4.0) uIU/mL Beta HCG, Quant mIU/mL COVID-19 (CARI) Negative (Negative) COVID-19 Clin Com See Note ECG Data Interpretation: , sinus rhythm. Normal EKG. Ventricular rate 73. Pr interval 156. QRS 90. QTC 418. Negative STEMI Discharge Plan Discharge Clinical Impression: Palpitations Patient Disposition: Home, Self-Care Instructions: Heart Palpitations (ED) Additional Instructions: Return to the ED for any chest pain, shortness of breath, headache, slurred speech, facial droop, paralysis of extremities, coughing up blood, leg swelling, calf pain, worsening palpitations, or any other concerning symptoms. The blood work EKG, and imaging all came back normal and negative for heart regular, heart attack, pneumonia, COVID, or pulmonary embolus. Please follow-up primary care provider Prescriptions: No Action ketorolac 10 mg tablet 10 mg PO QID PRN (Reason: pain) 5 Days Qty: 20 0RF Rx Instructions: patient received IM 30 toradol in the ED. prednisone 20 mg tablet 60 mg PO DAILY 5 Days Qty: 15 0RF oxycodone-acetaminophen [Percocet] 5-325 mg tablet 1 tab PO TID PRN (Reason: pain) Qty: 9 0RF Rx Instructions: side effect is drowsiness. Do not take at work or while driving. amoxicillin-pot clavulanate 875-125 mg tablet 1 tab PO BID Qty: 20 0RF prednisone 50 mg tablet 50 mg PO DAILY Qty: 5 0RF Stand Alone Forms: Work/School Release Interventions: ED Discharge Assessment Last Done: 02/21/22 00:25 Discharge Date/Time: 02/21/22 00:26 Print Language: [place]
[2022-02-20 21:18] LABS: HCG Quantitative < 2 mIU/mL
[2022-02-20] MEDS: iohexoL 350 MG/ML 100 ML INFUS..BTL IV (21:52)
[2022-02-20 21:57] VITALS: BP 131/76; PULSE 68; RESP 16; TEMP 37.1; O2SAT 99
[2022-02-20 23:02] LABS: Troponin-I High Sensitivity < 3.5 ng/L (<3.5-17.0)
[2022-02-21 00:20] VITALS: BP 113/63; PULSE 64; RESP 15; TEMP 36.9; O2SAT 96
== END 2022-02-21 00:26 | disposition home or self-care (01) ==
PROVIDERS: Physician Assistant; Emergency Provider Internal Medicine
DX: R00.2 Palpitations (principal); R06.02 Shortness of breath; Z20.822 Contact with and (suspected) exposure to COVID-19
CPT/HCPCS: 36415; 71045; 71275; 80053; 83880; 84443; 84484; 84702; 85025; 85379; 85610; 85730; 87635; 93005; 99284; Q9967

== ENCOUNTER 2023-01-15 07:12 | Emergency (ER) | payer OTHER, SELFPAY ==
--- NOTE | ~2023-01-15 | US_ITS ---
EXAMINATION: Limited OB ultrasound CLINICAL INFORMATION: Vaginal bleeding and pain COMPARISON: None. TECHNIQUE: Transabdominal OB ultrasound FINDINGS: There is a single intrauterine in cephalic position. No heart activity is seen. The shape of the head is abnormal. There is a soft tissue mass protruding from the anterior abdominal wall questionable for omphalocele or gastroschises. Femur length measures 2 cm which would suggest gestational age 16 weeks 1 day. There may be funneling of the cervix. Placental tissue appears uniformly thin. The ovaries are not seen. There is no fluid in the pelvis. US/US OB limited IMPRESSION: demise and question pending spontaneous . Findings will be communicated by the [place] work flow toy parts former supervisor.
[2023-01-15 07:39] VITALS: BP 130/49; PULSE 70; RESP 16; TEMP 36.7; O2SAT 98; BMI 30.6
--- NOTE | 2023-01-15 07:57 | ED_ITS ---
HPI - Abdominal Pain General Chief Complaint: Abdominal Pain Stated Complaint: [place] something pop vaginal bleeding Time Seen by Provider: 01/15/23 07:28 Source: patient and RN notes reviewed Mode of arrival: ambulatory Limitations: no limitations History of Present Illness HPI narrative: This is a 48-year-old female, with a past medical history of asthma and arthritis, who presents the emergency department today with complaints of intermittent pelvic pain starting at 3:00 a.m. this morning. Patient reports t hat the sharp pain woke her up out of sleep. She was able to return back to sleep when she woke back up at 5:00 a.m. this morning with continued pelvic pain, she went to the bathroom and noticed clear liquid as well as some vaginal blood dripping down her leg. She reports that over the last 3 months she has had intermittent vaginal spotting, and was told by her OBGYN that she is in the perimenopausal state. She reports that she has had 8 vaginal births, all delivered vaginally without any complications. Denies any abdominal surgeries. Reports some urinary frequency, denies dysuria, hematuria. She admits that she has had 3 episodes of dizziness over the last week. Denies any dizziness today. Denies fevers, chills, headaches, URI symptoms, cough, shortness of breath, palpitations, chest pain, nausea, vomiting, or diarrhea. Denies taking any medications at home to treat her pain. No history of similar symptoms in the past. She is sexually active with her , she denies concerns for STIs at this time. No other complaints or concerns at this time. MD elicited complaint: abdominal pain Pertinent past history: none Onset (ago): hour(s) Pain Consistency: intermittent Location: suprapubic and pelvis Severity: moderate Quality: stabbing and sharp Radiation: none Migration to: no migration Exacerbating factors: nothing Relieving factors: nothing Associated symptoms: denies other symptoms Related Data Previous Rx's Medication Instructions Recorded ketorolac 10 mg tablet 10 mg PO QID PRN pain 5 days #20 06/27/21 tabs oxycodone-acetaminophen 5 mg-325 1 tab PO TID PRN pain #9 tabs 06/27/21 mg tablet (Percocet) prednisone 20 mg tablet 60 mg PO DAILY 5 days #15 tabs 06/27/21 amoxicillin 875 mg-potassium 1 tab PO BID #20 tabs 11/22/21 clavulanate 125 mg tablet prednisone 50 mg tablet 50 mg PO DAILY #5 tabs 01/24/22 Allergies Allergy/AdvReac Type Severity Reaction Status Date / Time No Known Allergies Allergy Unverified 06/03/20 15:17 [No Known Allergies*] Review of Systems Review of Systems Constitutional: No Weight loss, No Fever, No Chills, No Night Sweats, No Fatigue, No Malaise ENT/Mouth: No Hearing loss, No Ear Pain, No Nasal Congestion, No Sinus Pain, No Hoarseness, No sore throat, No Rhinorrhea, No Swallowing Difficulty Eyes: No Eye Pain, No Swelling, No Redness, No Foreign Body, No Discharge, No Vision Changes Cardiovascular: No Chest Pain, No SOB, No Dyspnea on Exertion, No Orthopnea, No Edema, No Palpitations Respiratory: No Cough, No Sputum, No Wheezing, No Smoke Exposure, No Dyspnea Gastrointestinal: No Nausea, No Vomiting, No Diarrhea, No Constipation, No Abdo yoko pain, No Hematochezia, No Melena Genitourinary:+ irregular bleeding, No Dysuria, + Urinary Frequency, No Hematuria, No Urinary Incontinence/retention, No Urgency, No Flank Pain, No Urinary Flow Changes, No Hesitancy Musculoskeletal: No joint pain, No Myalgias, No Joint Swelling Skin: No Skin Lesions, No rash Neuro: No Weakness, No Numbness, No Paresthesias, No Loss of Consciousness, No Dizziness, No Headache Psych: No Anxiety/Panic, No Depression, No SI/HI/AH/VH, No Social Issues, Heme/Lymph: No Bruising, No Bleeding,No Lymphadenopathy Endocrine: No Polyuria, No Polydipsia, No Temperature Intolerance Yes all other systems are reviewed and are negative Constitutional: Reports as per HPI [facility] Past Medical History Medical History Asthma Migraines Social History Social History Alcohol intake: never Patient Tobacco Use Status: Former Tobacco user Physical Exam ED Vital Signs: Vital Signs - 24 hr 01/15/23 07:39 01/15/23 08:11 01/15/23 08:11 Temperature 98.1 F Pulse Rate 70 60 60 Respiratory Rate 16 Blood Pressure 130/49 L 126/59 L 129/73 Pulse Oximetry 98 Oxygen Delivery Method Room Air 01/15/23 08:13 01/15/23 10:42 01/15/23 11:01 Temperature 98.2 F 98.9 F Pulse Rate 60 68 79 Respiratory Rate 14 20 Blood Pressure 118/71 147/91 H 158/77 H Pulse Oximetry 97 97 Oxygen Delivery Method Room Air Room Air BMI result Body Mass Index 30.6 Const General: cooperative, comfortable and no acute distress Orientation/consciousness: patient oriented x3 Limitations: no limitations HENMT Head: Yes normal to inspection, Yes normocephalic and Yes atraumatic Ears: hearing grossly normal bilaterally General nose exam: Normal external nose present Face and sinus: Yes normal facial exam Mouth: Normal oral and palatal mucosa present, oropharynx normal and moist mucous membranes Throat: Yes posterior oropharynx normal Eyes General: appearance normal, both eyes and all related structures Eyelids: Yes eyelids normal Conjunctivae: conjunctivae normal Sclerae: sclerae normal Pupils: Equal, round and reactive pupils present EOM: EOMs intact bilaterally Neck Neck: Yes normal visual inspection, Yes full ROM and Yes no lymphadenopathy Lymphatic: no lymphadenopathy noted Chest Chest palpation & inspection: normal inspection of the chest Resp Effort & Inspection: normal respiratory effort and able to speak in complete sentences Auscultation: clear to auscultation bilaterally, no crackles, no rales, no rhonchi and no wheezes Cardio Rate: regular rate Rhythm: regular rhythm Heart sounds: S1 normal heart sound present and S2 normal heart sound present GI Other: Abdomen is soft, nondistended, moderate tenderness to palpation the suprapubic region with guarding, no rebound, mild tenderness over the right lower quadrant. Inspection: Yes normal to inspection Auscultation: normal bowel sounds Skin General skin exam: no rashes or lesions noted Trauma: no lacerations or abrasions Wounds: no wounds Neuro General: patient oriented x3 and moves all extremities Cranial nerves: Yes Equal, round and reactive pupils present Extrem General: Yes normal to inspection Right upper extremity: normal to inspection Left upper extremity: normal to inspection Right lower extremity: normal to inspection Left lower extremity: normal to inspection Course Reevaluation(s) Reevaluation #1: I was notified by highway maintenance technician that the patient has a intrauterine that they estimate to be around 12 weeks with no heartbeat. The highway maintenance technician had notified the patient of these findings during the exam. Spoke to Dr. Lujan who will come and evaluate patient. Time: 10:00 Reevaluation #2: I spoke to patient in regards to these findings, patient is tearful and was unaware that she was . She has spoken to her homeworker, denies any questions or concerns at this time. Ultrasound report reviewed as I demise, question pending spontaneous , femur length suggesting gestational age of 16 weeks and 1 day along shape of his abnormal with a soft tissue mass protruding from the anterior abdominal wall questionable for of omphalocele or gastroschises. Time: 10:23 Reevaluation #3: Dr. Lujan consulted the patient, who examined the patient and reports that her current presentation is suggestive of spontaneous rupture membranes at 3:00 a.m. this morning. Since there is evidence of demise he recommends transfer to [facility] as soon as possible for further management because maternity is unavailable at [facility]. Called and spoke to Aviva for [facility] transfer, who will initiate consult with [facility] OB Time: 10:42 Additional Reevaluation(s): 11:00 - spoke to Dr. Watts, given reported who accepts transfer of care to [facility]. Discuss this with patient and at bedside. Patient does not have any questions or concerns. Initiation of S ambulance transfer care in place. Patient remains hemodynamically stable. Medical Decision Making Medical Decision Making MDM Narrative: 48-year-old female, with a past medical history of asthma and arthritis, who presents emergency department suprapubic pain and abnormal vaginal bleeding since 3AM this morning. On examination, patient is nontoxic appearing, vital signs are stable. Abdomen is soft with tenderness in the suprapubic region and right lower quadrant. Patient also reports 3 episodes of dizziness over the last week, we will obtain orthostatic vital signs and EKG. Patient is neurologically intact. Plan: Labs, UA, orthostatic vital signs, Toradol 30 mg IV, 1 L of IV fluids, EKG, pelvic and transvaginal ultrasound ordered. Differential Diagnosis Differential Diagnoses: The differential diagnosis associated with the presentation includes Ovarian cyst, ovarian torsion, abnormal uterine bleeding, uterine fibroids, , UTI, spontaneous Admission/Observation Consideration of admission/observation: Escalation of care including admission/observation considered Consult Healthcare Provider Management of the patient was discussed with: Tech Brazer Tester Dr. Lujan Lab Data MDM Lab Attestation statement: I reviewed the patient's lab results. 01/15/23 08:06 01/15/23 08:06 Labs: Lab Results 01/15/23 01/15/23 01/15/23 Range/Units 08:06 08:13 08:13 WBC 11.5 H (4.8-10.8) X10*3/uL RBC 4.75 (4.20-5.50) X10*6/uL Hgb 11.9 L (12.0-16.0) g/dl Hct 36.7 L (37.0-47.0) % MCV 77.3 L (80.0-98.0) fL MCH 25.1 L (27.0-33.0) pg MCHC 32.4 (31.0-35.0) g/dl RDW 16.0 (11.0-16.0) % Plt Count 239 (160-400) X10*3/uL MPV 10.6 (9.4-12.3) fL Immature Gran % (Auto) 0.3 (0.0-0.4) % Neut % (Auto) 76.8 H (45-73) % Lymph % (Auto) 12.1 L (20-40) % Wallace % (Auto) 8.8 (2-11) % Eos % (Auto) 1.7 (0-4) % Baso % (Auto) 0.3 (0-2) % Lymph # (Auto) 1.4 (1.2-4.9) X10*3/uL Wallace # (Auto) 1.0 (0.1-1.2) X10*3/uL Eos # (Auto) 0.2 (0.0-0.4) X10*3/uL Baso # (Auto) 0.0 (0.0-0.2) X10*3/uL Abs Immat Gran (auto) 0.04 H (0.00-0.03) X10*3/uL Absolute Neuts (auto) 8.8 H (2.0-8.3) x10*3/uL Absolute Nucleated RBC 0.000 (0.0-0.012) X10*3/uL Nucleated RBC % (auto) 0.0 (0.0-0.2) /100WBC Sodium (135-145) mmol/L Potassium (3.3-5.1) mmol/L Chloride (96-108) mmol/L Carbon Dioxide (22-29) mmol/L Anion Gap (12-20) BUN (9-16) mg/dL Creatinine (0.5-1.4) mg/dL Estim Creat Clear Calc Estimated GFR Random Glucose (60-115) mg/dL Calcium (8.4-10.2) mg/dL Magnesium (1.6-2.6) mg/dL Total Bilirubin (0.0-1.0) mg/dL Direct Bilirubin (0.0-0.5) mg/dL AST (5-31) U/L ALT (0-31) U/L Alkaline Phosphatase (39-117) U/L Total Protein (6.5-8.0) g/dL Albumin (3.5-5.0) g/dL Lipase (8-78) U/L Beta HCG, Quant mIU/mL Urine Color Yellow Urine Appearance Clear Urine pH 6.0 (5.0-9.0) Ur Specific [place] 1.015 (1.005-1.025) Urine Protein Negative (Neg-Trace) mg/dL Urine Glucose (UA) Negative (Negative) mg/dL Urine Ketones Negative (Negative) mg/dL Urine Blood Moderate (2+) H (Negative) Urine Nitrite Negative (Negative) Ur Leukocyte Esterase Trace H (Negative) Urine RBC >20 H (0-2) /HPF Urine WBC 0-5 (0-5) /HPF Ur Squamous Epith Cells 0-2 (0-2) /HPF Urine Bacteria None Seen (None Seen) Hyaline Casts 0-2 (0-2) /LPF Urine Test WEAKLY POSITIVE H (NEGATIVE) Chlam trachomat DNA PCR (Not Detect.) COVID-19 (CARI) (Negative) COVID-19 Clin Com N.gonorrhoeae DNA (PCR) (Not Detect.) Blood Type 01/15/23 01/15/23 01/15/23 Range/Units 09:34 09:39 11:04 WBC (4.8-10.8) X10*3/uL RBC (4.20-5.50) X10*6/uL Hgb (12.0-16.0) g/dl Hct (37.0-47.0) % MCV (80.0-98.0) fL MCH (27.0-33.0) pg MCHC (31.0-35.0) g/dl RDW (11.0-16.0) % Plt Count (160-400) X10*3/uL MPV (9.4-12.3) fL Immature Gran % (Auto) (0.0-0.4) % Neut % (Auto) (45-73) % Lymph % (Auto) (20-40) % Wallace % (Auto) (2-11) % Eos % (Auto) (0-4) % Baso % (Auto) (0-2) % Lymph # (Auto) (1.2-4.9) X10*3/uL Wallace # (Auto) (0.1-1.2) X10*3/uL Eos # (Auto) (0.0-0.4) X10*3/uL Baso # (Auto) (0.0-0.2) X10*3/uL Abs Immat Gran (auto) (0.00-0.03) X10*3/uL Absolute Neuts (auto) (2.0-8.3) x10*3/uL Absolute Nucleated RBC (0.0-0.012) X10*3/uL Nucleated RBC % (auto) (0.0-0.2) /100WBC Sodium 142 (135-145) mmol/L Potassium 3.9 (3.3-5.1) mmol/L Chloride 107 (96-108) mmol/L Carbon Dioxide 26 (22-29) mmol/L Anion Gap 13 (12-20) BUN 11 (9-16) mg/dL Creatinine 0.62 (0.5-1.4) mg/dL Estim Creat Clear Calc 103.9 Estimated GFR > 60 Random Glucose 91 (60-115) mg/dL Calcium 8.7 (8.4-10.2) mg/dL Magnesium 1.9 (1.6-2.6) mg/dL Total Bilirubin 0.6 (0.0-1.0) mg/dL Direct Bilirubin 0.2 (0.0-0.5) mg/dL AST 14 (5-31) U/L ALT 11 (0-31) U/L Alkaline Phosphatase 102 (39-117) U/L Total Protein 6.9 (6.5-8.0) g/dL Albumin 4.0 (3.5-5.0) g/dL Lipase 18 (8-78) U/L Beta HCG, Quant 41 mIU/mL Urine Color Urine Appearance Urine pH (5.0-9.0) Ur Specific [place] (1.005-1.025) Urine Protein (Neg-Trace) mg/dL Urine Glucose (UA) (Negative) mg/dL Urine Ketones (Negative) mg/dL Urine Blood (Negative) Urine Nitrite (Negative) Ur Leukocyte Esterase (Negative) Urine RBC (0-2) /HPF Urine WBC (0-5) /HPF Ur Squamous Epith Cells (0-2) /HPF Urine Bacteria (None Seen) Hyaline Casts (0-2) /LPF Urine Test (NEGATIVE) Chlam trachomat DNA PCR (Not Detect.) COVID-19 (CARI) Negative (Negative) COVID-19 Clin Com See Note N.gonorrhoeae DNA (PCR) (Not Detect.) Blood Type A Positive 01/15/23 Range/Units 11:04 WBC (4.8-10.8) X10*3/uL RBC (4.20-5.50) X10*6/uL Hgb (12.0-16.0) g/dl Hct (37.0-47.0) % MCV (80.0-98.0) fL MCH (27.0-33.0) pg MCHC (31.0-35.0) g/dl RDW (11.0-16.0) % Plt Count (160-400) X10*3/uL MPV (9.4-12.3) fL Immature Gran % (Auto) (0.0-0.4) % Neut % (Auto) (45-73) % Lymph % (Auto) (20-40) % Wallace % (Auto) (2-11) % Eos % (Auto) (0-4) % Baso % (Auto) (0-2) % Lymph # (Auto) (1.2-4.9) X10*3/uL Wallace # (Auto) (0.1-1.2) X10*3/uL Eos # (Auto) (0.0-0.4) X10*3/uL Baso # (Auto) (0.0-0.2) X10*3/uL Abs Immat Gran (auto) (0.00-0.03) X10*3/uL Absolute Neuts (auto) (2.0-8.3) x10*3/uL Absolute Nucleated RBC (0.0-0.012) X10*3/uL Nucleated RBC % (auto) (0.0-0.2) /100WBC Sodium (135-145) mmol/L Potassium (3.3-5.1) mmol/L Chloride (96-108) mmol/L Carbon Dioxide (22-29) mmol/L Anion Gap (12-20) BUN (9-16) mg/dL Creatinine (0.5-1.4) mg/dL Estim Creat Clear Calc Estimated GFR Random Glucose (60-115) mg/dL Calcium (8.4-10.2) mg/dL Magnesium (1.6-2.6) mg/dL Total Bilirubin (0.0-1.0) mg/dL Direct Bilirubin (0.0-0.5) mg/dL AST (5-31) U/L ALT (0-31) U/L Alkaline Phosphatase (39-117) U/L Total Protein (6.5-8.0) g/dL Albumin (3.5-5.0) g/dL Lipase (8-78) U/L Beta HCG, Quant mIU/mL Urine Color Urine Appearance Urine pH (5.0-9.0) Ur Specific [place] (1.005-1.025) Urine Protein (Neg-Trace) mg/dL Urine Glucose (UA) (Negative) mg/dL Urine Ketones (Negative) mg/dL Urine Blood (Negative) Urine Nitrite (Negative) Ur Leukocyte Esterase (Negative) Urine RBC (0-2) /HPF Urine WBC (0-5) /HPF Ur Squamous Epith Cells (0-2) /HPF Urine Bacteria (None Seen) Hyaline Casts (0-2) /LPF Urine Test (NEGATIVE) Chlam trachomat DNA PCR NOT DETECTED (Not Detect.) COVID-19 (CARI) (Negative) COVID-19 Clin Com N.gonorrhoeae DNA (PCR) NOT DETECTED (Not Detect.) Blood Type Radiology Impression Discussion of test interpretation with radiology: I have reviewed the radiologist's reading. Radiologist Impression: EXAMINATION: Limited OB ultrasound CLINICAL INFORMATION: Vaginal bleeding and pain? COMPARISON: None.? TECHNIQUE: Transabdominal OB ultrasound? FINDINGS: There is a single intrauterine in cephalic position. No heart activity is seen. The shape of the head is abnormal. There is a soft tissue mass protruding from the anterior abdominal wall questionable for omphalocele or gastroschises. Femur length measures 2 cm which would suggest gestational age 16 weeks 1 day. There may be funneling of the cervix. Placental tissue appears uniformly thin. The ovaries are not seen. There is no fluid in the pelvis. US/US OB limited IMPRESSION: demise and question pending spontaneous . ? Findings will be communicated by the Fred work flow truck despatcher. Dictated By: Lily Carbajal MD External Record Review External record reviewed: Inpatient record, Office record, Outpatient record, Prior outpatient labs, Prior outpatient radiology, Primary care record and Outside ED record Medications Administered Discontinued Medications Generic Name Dose Route Start Last Admin Trade Name Freq PRN Reason Stop Dose Admin Sodium Chloride 1,000 mls @ 999 mls/hr 01/15/23 07:57 01/15/23 11:03 Ns IVCONT 01/15/23 08:57 Infused .Q1H1M ONE Infusion Ketorolac Tromethamine 30 mg 01/15/23 07:57 01/15/23 08:10 Ketorolac Tromethamine 30 Mg/Ml Vial IVPUSH 01/15/23 07:58 30 mg ONCE ONE Administration Discharge Plan Discharge Clinical Impression: demise before 20 weeks with retention of fetus Patient Disposition: [facility] Transfer Details: [facility] - [place] Prescriptions: No Action ketorolac 10 mg tablet 10 mg PO QID PRN (Reason: pain) 5 Days Qty: 20 0RF Rx Instructions: patient received IM 30 toradol in the ED. prednisone 20 mg tablet 60 mg PO DAILY 5 Days Qty: 15 0RF oxycodone-acetaminophen [Percocet] 5-325 mg tablet 1 tab PO TID PRN (Reason: pain) Qty: 9 0RF Rx Instructions: side effect is drowsiness. Do not take at work or while driving. amoxicillin-pot clavulanate 875-125 mg tablet 1 tab PO BID Qty: 20 0RF prednisone 50 mg tablet 50 mg PO DAILY Qty: 5 0RF Interventions: Acute Care Transfer Worksheet (ED) Last Done: 01/15/23 12:20 Discharge Date/Time: 01/15/23 12:20
--- NOTE | 2023-01-15 08:09 | ECG_ITS ---
Test Reason : dizziness Blood Pressure : / mmHG Vent. Rate : 065 BPM Atrial Rate : 065 BPM P-R Int : 166 ms QRS Dur : 082 ms QT Int : 410 ms P-R-T Axes : 029 -19 019 degrees QTc Int : 426 ms Normal sinus rhythm Septal infarct , age undetermined Abnormal ECG When compared with ECG of 20-FEB-2022 18:15, Septal infarct is now Present Referred By: Shruthi Sharif Electronically Signed By:GAURAV ALCALA MD
[2023-01-15] MEDS: Ketorolac Tromethamine 30 MG/ML VIAL IVPUSH (08:10)
[2023-01-15 08:11] VITALS: BP 126/59; BP 129/73; PULSE 60
[2023-01-15 08:11] LABS: MANUAL DIFF FLAG NO
[2023-01-15 08:13] VITALS: BP 118/71; PULSE 60
[2023-01-15 08:16] LABS: Basophils Percent Auto 0.3 % (0-2); Eosinophils Absolute Auto 0.2 X10*3/uL (0.0-0.4); Eosinophils Percent Auto 1.7 % (0-4); Hematocrit 36.7 % (37.0-47.0); Hemoglobin 11.9 g/dl (12.0-16.0); Imm Gran Abs Auto 0.04 X10*3/uL (0.00-0.03); Imm Gran Pct Auto 0.3 % (0.0-0.4); Lymphocytes Absolute Auto 1.4 X10*3/uL (1.2-4.9); Lymphocytes Percent Auto 12.1 % (20-40); Mean Corpuscular HGB Conc 32.4 g/dl (31.0-35.0); Mean Corpuscular Hemoglobin 25.1 pg (27.0-33.0); Mean Corpuscular Volume 77.3 fL (80.0-98.0); Mean Platelet Volume 10.6 fL (9.4-12.3); Monocytes Percent Auto 8.8 % (2-11); Neutrophils Absolute Auto 8.8 x10*3/uL (2.0-8.3); Neutrophils Percent Auto 76.8 % (45-73); Platelet Count 239 X10*3/uL (160-400); Red Blood Count 4.75 X10*6/uL (4.20-5.50); White Blood Count 11.5 X10*3/uL (4.8-10.8)
[2023-01-15] MEDS: 0.9 % Sodium Chloride 1,000 ML 999 ML IVCONT (08:16)
[2023-01-15 08:28] LABS: Appearance Urine Clear; Color Urine Yellow; Glucose Urine UA Negative (Negative); Leukocyte Esterase Urine Trace (Negative); Nitrite Urine Negative (Negative); Specific Gravity - Urine 1.015 (1.005-1.025); UMIC TRIGGER UACC YES; Urine Blood Moderate (2+) (Negative); Urine Ketones Negative (Negative); Urine Protein Negative (Neg-Trace)
[2023-01-15 08:30] LABS: Bacteria Urine None Seen (None Seen); Hyaline Casts Urine 0-2 /LPF (0-2); RBC Urine >20 /HPF (0-2); Squamous Epithelial Cell Urine 0-2 /HPF (0-2); UPreg QC Valid YES; WBC Urine 0-5 /HPF (0-5)
[2023-01-15 08:39] LABS: Urine Pregnancy WEAKLY POSITIVE (NEGATIVE)
--- NOTE | 2023-01-15 09:58 | P.CONOB_ITS ---
DECK ENGINE OPERATOR - CN: HPI Data of Consult Consult date: 01/15/23 Primary Care Provider: Unknown Physician Consult Narrative Narrative: I was consulted on Ravindra Giordano who is a 48 year old female presented emergency room complaining of abdominal cramping, and sudden gush of fluid at 03:00 associated with mild vaginal bleeding/spotting. No fever or chills, no GI or symptoms, no other associated symptoms. The patient's abdominal cramping and bleeding has resolved at this time. LMP has been irregular recently and the patient attributed to perimenopause, she is unsure of her last menstrual cycle. cc:: CC: OB [facility] Past Medical History Medical History Asthma Migraines Social History Social History Alcohol intake: never Patient Tobacco Use Status: Former Tobacco user Advance Directives: No Advance Directives Information Provided: Yes Meds Allergies Allergy/AdvReac Type Severity Reaction Status Date / Time No Known Allergies Allergy Unverified 06/03/20 15:17 [No Known Allergies*] DECK ENGINE OPERATOR Physical Exam Vitals Vital signs: Temp Pulse Resp BP Pulse Ox O2 Del Method 98.1 F 60 16 118/71 98 Room Air 01/15/23 07:39 01/15/23 08:13 01/15/23 07:39 01/15/23 08:13 01/15/23 07:39 01/15/23 07:39 BMI result Body Mass Index 30.6 Abdomen Auscultation/Inspection/Palpation: Soft, Non-distended and No tenderness Female Genitalia (Pelvic) Bladder/Urethra: Normal meatus Vulva: No lesions Vagina: Nontender Cervix: Grossly normal Uterus: Enlarged Adnexa/Parametria: Adnexal Tenderness: None, Adnexal Mass: None, Parametrial Tenderness: None and Parametrial Mass: None Additional Comments: Sixteen week size gravid uterus, cervix looks closed DECK ENGINE OPERATOR - Results Labs 01/15/23 08:06 01/15/23 08:06 Labs: Short CBC 01/15/23 Range/Units 08:06 WBC 11.5 H (4.8-10.8) X10*3/uL Hgb 11.9 L (12.0-16.0) g/dl Hct 36.7 L (37.0-47.0) % Plt Count 239 (160-400) X10*3/uL Urine 01/15/23 01/15/23 Range/Units 08:13 08:13 Urine Color Yellow Urine Appearance Clear Urine pH 6.0 (5.0-9.0) Ur Specific [place] 1.015 (1.005-1.025) Urine Protein Negative (Neg-Trace) mg/dL Urine Glucose (UA) Negative (Negative) mg/dL Urine Test WEAKLY POSITIVE H (NEGATIVE) Imaging US - abdomen: Radiologist's impression: ITS Impressions Obstetrics Ultrasound 01/15/23 09:07 IMPRESSION: demise and question pending spontaneous . Findings will be communicated by the Fred work flow radial drill operator for plastic. Assessment and Plan (1) demise before 20 weeks with retention of fetus: Status: Acute The patient's history suggestive of spontaneous rupture of membranes at 03:00, since there is evidence of demise , I recommend to transfer the patient to [facility] for further management because of unavailability of maternity at [facility]. Explained to the patient the clinical diag nosis, and options of treatment including medical or surgical termination of , all questions answered, the patient verbalized understanding. Discussed the case with JOSE Gutierrez in the emergency room Time Spent With Patient Time: Total time managing care of this patient today ____ minutes.
[2023-01-15 10:42] VITALS: BP 147/91; PULSE 68; RESP 14; TEMP 36.8; O2SAT 97
[2023-01-15 11:01] VITALS: BP 158/77; PULSE 79; RESP 20; TEMP 37.2; O2SAT 97
[2023-01-15 11:32] LABS: Alanine Aminotransferase 11 U/L (0-31); Alkaline Phosphatase 102 U/L (39-117); Anion Gap 13 (12-20); Aspartate Amino Transferase 14 U/L (5-31); Bilirubin Direct 0.2 mg/dL (0.0-0.5); Bilirubin Total 0.6 mg/dL (0.0-1.0); Blood Urea Nitrogen 11 mg/dL (9-16); Calcium 8.7 mg/dL (8.4-10.2); Carbon Dioxide 26 mmol/L (22-29); Chloride 107 mmol/L (96-108); Creatinine Clr Calc Pharmacy 103.9; Estimated Glomerular Filt Rate > 60; Glucose Random 91 mg/dL (60-115); HCG Quantitative 41 mIU/mL; Lipase 18 U/L (8-78); Magnesium 1.9 mg/dL (1.6-2.6); Potassium 3.9 mmol/L (3.3-5.1); Sodium 142 mmol/L (135-145); Total Protein 6.9 g/dL (6.5-8.0)
[2023-01-15 11:35] LABS: COVID-19 Test Negative (Negative); IDNOW Serial# 08D9AD1C
[2023-01-15 12:54] LABS: CT PCR NOT DETECTED (Not Detect.); NG PCR NOT DETECTED (Not Detect.)
[2023-01-16 09:35] LABS: BV Int Neg Control Negative (Negative); BV Int Pos Control Positive (Positive)
== END 2023-01-15 12:20 | disposition short-term general hospital (02) ==
PROVIDERS: Physician Assistant Medical; Emergency Provider Emergency Medicine
DX: O02.1 Missed abortion (principal); R42 Dizziness and giddiness; Z20.822 Contact with and (suspected) exposure to COVID-19; Z20.828 Contact with and (suspected) exposure to other viral communicable diseases; Z79.899 Other long term (current) drug therapy
CPT/HCPCS: 0353U; 36415; 76815; 80048; 80076; 81001; 81025; 83690; 83735; 84702; 85025; 86900; 86901; 87480; 87510; 87635; 87660; 93005; 96361; 96374; 99285; J1885

== ENCOUNTER 2023-03-18 03:55 | Emergency (ER) | payer OTHER, SELFPAY ==
[2023-03-18 04:00] VITALS: BP 112/47; PULSE 67; RESP 18; TEMP 36.2; O2SAT 96; BMI 30.8
[2023-03-18 04:42] LABS: MANUAL DIFF FLAG NO
[2023-03-18 04:43] LABS: Basophils Percent Auto 0.4 % (0-2); Eosinophils Absolute Auto 0.3 X10*3/uL (0.0-0.4); Eosinophils Percent Auto 3.7 % (0-4); Hematocrit 33.3 % (37.0-47.0); Hemoglobin 10.6 g/dl (12.0-16.0); Imm Gran Abs Auto 0.02 X10*3/uL (0.00-0.03); Imm Gran Pct Auto 0.3 % (0.0-0.4); Lymphocytes Absolute Auto 1.7 X10*3/uL (1.2-4.9); Lymphocytes Percent Auto 21.7 % (20-40); Mean Corpuscular HGB Conc 31.8 g/dl (31.0-35.0); Mean Corpuscular Hemoglobin 23.7 pg (27.0-33.0); Mean Corpuscular Volume 74.5 fL (80.0-98.0); Mean Platelet Volume 10.4 fL (9.4-12.3); Monocytes Absolute Auto 1.1 X10*3/uL (0.1-1.2); Monocytes Percent Auto 14.1 % (2-11); Neutrophils Absolute Auto 4.5 x10*3/uL (2.0-8.3); Neutrophils Percent Auto 59.8 % (45-73); Platelet Count 223 X10*3/uL (160-400); Red Blood Count 4.47 X10*6/uL (4.20-5.50); Red Cell Distribution Width 15.8 % (11.0-16.0); White Blood Count 7.6 X10*3/uL (4.8-10.8)
[2023-03-18 05:02] LABS: Alanine Aminotransferase 16 U/L (0-31); Albumin Level 3.8 g/dL (3.5-5.0); Alkaline Phosphatase 83 U/L (39-117); Anion Gap 12 (12-20); Aspartate Amino Transferase 17 U/L (5-31); Bilirubin Total 0.3 mg/dL (0.0-1.0); Blood Urea Nitrogen 14 mg/dL (9-16); Calcium 8.8 mg/dL (8.4-10.2); Carbon Dioxide 23 mmol/L (22-29); Chloride 110 mmol/L (96-108); Creatinine Clr Calc Pharmacy 96.5; Estimated Glomerular Filt Rate > 60; Glucose Random 94 mg/dL (60-115); Sodium 141 mmol/L (135-145); Total Protein 6.6 g/dL (6.5-8.0)
[2023-03-18 05:21] LABS: Influenza A PCR NEGATIVE (Negative); Influenza B PCR NEGATIVE (Negative); Resp Syncy Virus RNA Qual PCR NEGATIVE (Negative); SARS COV2 PCR INHOUSE NEGATIVE (Negative)
--- NOTE | 2023-03-18 06:03 | ED.GENADULT ---
HPI - General Adult General Chief complaint: Nausea/Vomiting/Diarrhea Stated complaint: Nausea/Chills Time Seen by Provider: 03/18/23 05:55 Source: patient Mode of arrival: ambulatory Limitations: no limitations History of Present Illness HPI narrative: 48-year-old female with no major medical problems presents with nausea, vomiting abdominal discomfort. Symptoms started 2-3 days ago. Her symptoms are actually getting worse. She is tolerating oral intake. She had no fevers or chills. She denies any abdominal pain. There is no clear relieving or exacerbating features. There has been no prior treatment. She denies any sick contacts. Related Data Previous Rx's Medication Instructions Recorded ketorolac 10 mg tablet 10 mg PO QID PRN pain 5 days #20 06/27/21 tabs oxycodone-acetaminophen 5 mg-325 1 tab PO TID PRN pain #9 tabs 06/27/21 mg tablet (Percocet) prednisone 20 mg tablet 60 mg PO DAILY 5 days #15 tabs 06/27/21 amoxicillin 875 mg-potassium 1 tab PO BID #20 tabs 11/22/21 clavulanate 125 mg tablet prednisone 50 mg tablet 50 mg PO DAILY #5 tabs 01/24/22 Allergies Allergy/AdvReac Type Severity Reaction Status Date / Time No Known Allergies Allergy Unverified 06/03/20 15:17 [No Known Allergies*] Review of Systems Review of Systems: CONSTITUTIONAL: Denies weight loss, fever and chills. HEENT: Denies changes in vision and hearing. RESPIRATORY: Denies SOB and cough. CV: Denies palpitations no CP. GI: + abdominal pain, nausea, vomiting - diarrhea. : Denies dysuria and urinary frequency. MSK: Denies myalgia and joint pain. SKIN: Denies rash and pruritus. NEUROLOGICAL: Denies headache and syncope. PSYCHIATRIC: Denies recent changes in mood. Denies anxiety and depression. All other ROS are negative unless in HPI PMFSH Past Medical History Medical History Asthma Migraines Social History Social History Alcohol intake: former Patient Tobacco Use Status: Former Tobacco user Smoked in Last 30 Days: No Use of substances other than those prescribed or required for medical reasons: No Advance Directives: No Advance Directives Information Provided: No Patient : No Physical Exam ED Vital Signs: Vital Signs - 24 hr 03/18/23 04:00 Temperature 97.2 F Pulse Rate 67 Respiratory Rate 18 Blood Pressure 112/47 L Pulse Oximetry 96 Oxygen Delivery Method Room Air BMI result Body Mass Index 30.8 GEN: Well developed, no acute distress, alert, oriented HEENT: Normocephalic, atraumatic, normal external ears, nose appears normal, no oropharyngeal edema or exudates Eyes: Normal to appearance Neck: Supple, no lymphadenopathy Respiratory: Talks in complete sentences, no respiratory distress, clear to auscultation bilaterally Cardiovascular: Regular rate and rhythm, no murmurs rubs or gallops Abdomen: Soft, nontender, nondistended, no guarding, no rebound Back: No CVA tenderness Extremities: No clubbing cyanosis or edema Neurologic: No focal neurologic deficits, cranial nerves 2-12 intact, strength is 5/5 bilaterally Skin: No rash Course Course Course Narrative: The workup is complete. Patient likely has viral gastroenteritis. She was COVID and influenza negative. Her CBC did demonstrate some mild anemia which I informed the patient of an should follow-up with her primary care provider. There is also mild hyperglycemia. She otherwise appeared well. Her exam was benign. Patient can be discharged home with encouragement to drink plenty of fluids. She may return for any worsening or and controlled symptoms. Medical Decision Making Medical Decision Making [facility] Narrative: 48-year-old female presents with nausea vomiting. Symptoms are resolving. Her examination is benign. Was likely this is viral gastroenteritis, differential diagnosis could include IBD, IBS, malabsorption. Workup will include laboratory analysis, viral serology. Will re-evaluate patient once results are back. Differential Diagnosis Differential Diagnoses: The differential diagnosis associated with the presentation includes (See above) Gastroenteritis Lab Data [facility] Lab Attestation statement: I reviewed the patient's lab results. 03/18/23 04:37 03/18/23 04:37 Labs: Lab Results 03/18/23 03/18/23 03/18/23 Range/Units 04:37 04:37 04:37 WBC 7.6 (4.8-10.8) X10*3/uL RBC 4.47 (4.20-5.50) X10*6/uL Hgb 10.6 L (12.0-16.0) g/dl Hct 33.3 L (37.0-47.0) % MCV 74.5 L (80.0-98.0) fL MCH 23.7 L (27.0-33.0) pg MCHC 31.8 (31.0-35.0) g/dl RDW 15.8 (11.0-16.0) % Plt Count 223 (160-400) X10*3/uL MPV 10.4 (9.4-12.3) fL Immature Gran % (Auto) 0.3 (0.0-0.4) % Neut % (Auto) 59.8 (45-73) % Lymph % (Auto) 21.7 (20-40) % [place] % (Auto) 14.1 H (2-11) % Eos % (Auto) 3.7 (0-4) % Baso % (Auto) 0.4 (0-2) % Lymph # (Auto) 1.7 (1.2-4.9) X10*3/uL [place] # (Auto) 1.1 (0.1-1.2) X10*3/uL Eos # (Auto) 0.3 (0.0-0.4) X10*3/uL Baso # (Auto) 0.0 (0.0-0.2) X10*3/uL Abs Immat Gran (auto) 0.02 (0.00-0.03) X10*3/uL Absolute Neuts (auto) 4.5 (2.0-8.3) x10*3/uL Absolute Nucleated RBC 0.000 (0.0-0.012) X10*3/uL Nucleated RBC % (auto) 0.0 (0.0-0.2) /100WBC Sodium 141 (135-145) mmol/L Potassium 4.0 (3.3-5.1) mmol/L Chloride 110 H (96-108) mmol/L Carbon Dioxide 23 (22-29) mmol/L Anion Gap 12 (12-20) BUN 14 (9-16) mg/dL Creatinine 0.67 (0.5-1.4) mg/dL Estim Creat Clear Calc 96.5 Estimated GFR > 60 Random Glucose 94 (60-115) mg/dL Calcium 8.8 (8.4-10.2) mg/dL Total Bilirubin 0.3 (0.0-1.0) mg/dL AST 17 (5-31) U/L ALT 16 (0-31) U/L Alkaline Phosphatase 83 (39-117) U/L Total Protein 6.6 (6.5-8.0) g/dL Albumin 3.8 (3.5-5.0) g/dL Influenza Type A (PCR) NEGATIVE (Negative) Influenza Type B (PCR) NEGATIVE (Negative) RSV RNA Qual (PCR) NEGATIVE (Negative) SARS-CoV-2 RNA (RT-PCR) NEGATIVE (Negative) Tests considered The following testing was considered but not selected: CT scanner ultrasound the abdomen, not definitely indicated given the benign nature of the exam. Prescription Management I considered prescription management with: Pain Medication Discharge Plan Discharge Clinical Impression: Gastroenteritis Instructions: Gastroenteritis (ED) Prescriptions: No Action ketorolac 10 mg tablet 10 mg PO QID PRN (Reason: pain) 5 Days Qty: 20 0RF Rx Instructions: patient received IM 30 toradol in the ED. prednisone 20 mg tablet 60 mg PO DAILY 5 Days Qty: 15 0RF oxycodone-acetaminophen [Percocet] 5-325 mg tablet 1 tab PO TID PRN (Reason: pain) Qty: 9 0RF Rx Instructions: side effect is drowsiness. Do not take at work or while driving. amoxicillin-pot clavulanate 875-125 mg tablet 1 tab PO BID Qty: 20 0RF prednisone 50 mg tablet 50 mg PO DAILY Qty: 5 0RF Referrals: Physician,Unknown J [Primary Care Provider] - (Primary care provider in 2-3 days if needed)
== END 2023-03-18 06:17 | disposition home or self-care (01) ==
PROVIDERS: Emergency Provider Emergency Medicine
DX: K52.9 Noninfective gastroenteritis and colitis, unspecified (principal); R11.2 Nausea with vomiting, unspecified; R10.9 Unspecified abdominal pain; Z20.822 Contact with and (suspected) exposure to COVID-19
CPT/HCPCS: 0241U; 36415; 80053; 85025; 99283; 99284

== ENCOUNTER 2023-07-11 16:14 | Emergency (ER) | payer OTHER, SELFPAY ==
--- NOTE | ~2023-07-11 | XR_ITS ---
EXAMINATION: XR CHEST 2 VIEW CLINICAL INFORMATION: Cough, question pneumonia COMPARISON: 02/20/2022 TECHNIQUE: PA and lateral views of the chest obtained. FINDINGS: The lungs are clear. There are no pleural effusions. The cardiomediastinal silhouette is normal. XR/XR chest 2V IMPRESSION: No acute cardiopulmonary disease.
--- NOTE | 2023-07-11 16:28 | ECG_ITS ---
Test Reason : CHEST PAIN Blood Pressure : / mmHG Vent. Rate : 074 BPM Atrial Rate : 074 BPM P-R Int : 166 ms QRS Dur : 088 ms QT Int : 394 ms P-R-T Axes : 029 -21 019 degrees QTc Int : 437 ms Normal sinus rhythm RSR' or QR pattern in V1 suggests right ventricular conduction delay Otherwise normal ECG When compared with ECG of 15-JAN-2023 10:46, No significant changes seen Referred By: Generic ED Physician Electronically Signed By:BUCK BECERRA MD
[2023-07-11 16:58] VITALS: BP 126/71; PULSE 67; RESP 17; TEMP 36.2; O2SAT 99; BMI 29.2
[2023-07-11 16:58] LABS: MANUAL DIFF FLAG NO
--- NOTE | 2023-07-11 17:01 | ED.GENADULT ---
HPI - General Adult General Chief complaint: Upper Respiratory Symptoms Stated complaint: cough, chest pain Time Seen by Provider: 07/11/23 20:46 Source: patient Mode of arrival: ambulatory Limitations: no limitations History of Present Illness HPI narrative: 48 yold female presents to the ED for flu like symptoms since sunday. patient states bodyaches, fever, and coughing. Daughter is also sick as per patient. Related Data Previous Rx's Medication Instructions Recorded ketorolac 10 mg tablet 10 mg PO QID PRN pain 5 days #20 06/27/21 tabs oxycodone-acetaminophen 5 mg-325 1 tab PO TID PRN pain #9 tabs 06/27/21 mg tablet (Percocet) prednisone 20 mg tablet 60 mg (3 x 20 mg) PO DAILY 5 days 06/27/21 #15 tabs amoxicillin 875 mg-potassium 1 tab PO BID #20 tabs 11/22/21 clavulanate 125 mg tablet prednisone 50 mg tablet 50 mg PO DAILY #5 tabs 01/24/22 ondansetron 4 mg disintegrating 4 mg PO Q8H PRN nausea and 03/18/23 tablet vomiting #10 tabs oseltamivir 75 mg capsule (Tamiflu) 75 mg PO BID 5 days #10 caps 07/11/23 Allergies Allergy/AdvReac Type Severity Reaction Status Date / Time No Known Allergies Allergy Unverified 07/05/23 15:04 [No Known Allergies*] Review of Systems Review of Systems: coughing, fever, bodyaches, Yes all other systems are reviewed and are negative PMFSH Past Medical History Medical History Asthma Migraines Social History Social History (System 07/05/23 @ 15:04 by Marilu Brooks) Alcohol intake: former Patient Tobacco Use Status: Former Tobacco user Advance Directives: No Advance Directives Information Provided: No Physical Exam ED Vital Signs: Vital Signs - 24 hr 07/11/23 16:58 07/11/23 19:29 Temperature 97.2 F Pulse Rate 67 71 Respiratory Rate 17 18 Blood Pressure 126/71 141/78 H Pulse Oximetry 99 100 Oxygen Delivery Method Room Air Room Air BMI result Body Mass Index 29.2 Const General: cooperative, healthy appearing, comfortable, no acute distress, well developed, alert and awake Orientation/consciousness: oriented to person, oriented to place, oriented to time and patient oriented x3 [facility] Head: Yes normal to inspection, Yes No palpable skull fracture present, Yes normocephalic and Yes atraumatic Ears: hearing grossly normal bilaterally, external ears normal, TM's normal bilaterally, TM normal on the right, TM normal on the left, EAC's normal, mastoids normal and no periauricular adenopathy General nose exam: Normal external nose present, Normal nares present and No nasal polyps present Face and sinus: Yes normal facial exam, Yes sinuses nontender and Yes face symmetric Mouth: Normal oral and palatal mucosa present, lip normal and tongue normal Throat: Yes posterior oropharynx normal, Yes tonsils normal and Yes uvula midline Eyes General: appearance normal, both eyes and all related structures Neck Neck: Yes normal visual inspection, Yes full ROM, Yes no lymphadenopathy, Yes no meningeal signs, Yes trachea midline, Yes supple, No anterior neck swelling and No tender Chest Chest palpation & inspection: normal inspection of the chest and normal palpation of entire chest wall Resp Effort & Inspection: normal respiratory effort and able to speak in complete sentences Auscultation: clear to auscultation bilaterally Cardio Jugular venous distension: no JVD Heart sounds: S1 normal heart sound present and S2 normal heart sound present GI Inspection: Yes normal to inspection Palpation (GI): Soft to palpation, not firm, nontender, no guarding and not rigid General: Yes no CVA tenderness Back/Spine/Pelvis Back: no CVA tenderness and No back tenderness Skin General skin exam: no rashes or lesions noted, elasticity normal and turgor normal Neuro General: oriented to person, oriented to place, oriented to time, patient oriented x3, gait normal, tone normal, moves all extremities, Normal light touch and pain sensation, no meningeal signs and no focal motor deficits Extrem General: Yes normal to inspection, Yes full ROM and Yes capillary refill normal Psych Appearance: grossly normal, well kempt and not disheveled Course Course Course Narrative: RME: 48 yold female presents to the ED for coughing, chest pain, fever, and bodyaches. labs, EKG, swabs, and chest xray ordered Medical Decision Making Medical Decision Making MDM Narrative: 48 yold female presents to the ED for coughing, chest pain, bodayches, and chills. positive for flu. Patient is well appearing. Patient discharged with tamiflu. Differential Diagnosis Differential Diagnoses: The differential diagnosis associated with the presentation includes (flu, covid, RSV) Admission/Observation Consideration of admission/observation: Escalation of care including admission/observation considered Lab Data MDM Lab Attestation statement: I reviewed the patient's lab results. 07/11/23 16:49 07/11/23 16:49 Labs: Lab Results 07/11/23 Range/Units 16:49 WBC 5.8 (4.8-10.8) X10*3/uL RBC 4.69 (4.20-5.50) X10*6/uL Hgb 12.1 (12.0-16.0) g/dl Hct 37.5 (37.0-47.0) % MCV 80.0 (80.0-98.0) fL MCH 25.8 L (27.0-33.0) pg MCHC 32.3 (31.0-35.0) g/dl RDW 18.4 H (11.0-16.0) % Plt Count 153 L D (160-400) X10*3/uL MPV 10.3 (9.4-12.3) fL Immature Gran % (Auto) 0.5 H (0.0-0.4) % Neut % (Auto) 53.7 (45-73) % Lymph % (Auto) 22.8 (20-40) % [place] % (Auto) 19.2 H (2-11) % Eos % (Auto) 3.3 (0-4) % Baso % (Auto) 0.5 (0-2) % Lymph # (Auto) 1.3 (1.2-4.9) X10*3/uL [place] # (Auto) 1.1 (0.1-1.2) X10*3/uL Eos # (Auto) 0.2 (0.0-0.4) X10*3/uL Baso # (Auto) 0.0 (0.0-0.2) X10*3/uL Abs Immat Gran (auto) 0.03 (0.00-0.03) X10*3/uL Absolute Neuts (auto) 3.1 (2.0-8.3) x10*3/uL Absolute Nucleated RBC 0.000 (0.0-0.012) X10*3/uL Nucleated RBC % (auto) 0.0 (0.0-0.2) /100WBC PT 13.4 H (11.1-13.3) SEC INR 1.1 (0.9-1.1) APTT 27.3 (26.0-36.4) SEC Sodium 141 (135-145) mmol/L Potassium 3.7 (3.3-5.1) mmol/L Chloride 106 (96-108) mmol/L Carbon Dioxide 26 (22-29) mmol/L Anion Gap 13 (12-20) BUN 9 (9-16) mg/dL Creatinine 0.59 (0.5-1.4) mg/dL Estim Creat Clear Calc 106.6 Estimated GFR > 60 Random Glucose 81 (60-115) mg/dL Calcium 8.8 (8.4-10.2) mg/dL Total Bilirubin 0.2 (0.0-1.0) mg/dL AST 18 (5-31) U/L ALT 13 (0-31) U/L Alkaline Phosphatase 74 (39-117) U/L Troponin I High Sens < 2.7 (<3.5-17.0) ng/L Total Protein 7.0 (6.5-8.0) g/dL Albumin 3.9 (3.5-5.0) g/dL Influenza Type A (PCR) POSITIVE A (Negative) Influenza Type B (PCR) NEGATIVE (Negative) RSV RNA Qual (PCR) NEGATIVE (Negative) SARS-CoV-2 RNA (RT-PCR) NEGATIVE (Negative) Prescription Management I considered prescription management with: Antiviral (tamiflu) Discharge Plan Discharge Clinical Impression: Influenza A Patient Disposition: Home, Self-Care Instructions: Influenza (ED) Additional Instructions: Return to the ED immediately for any chest pain, shortness of breath, weakness, coughing up blood, or any other concerning symptoms. please follow up with PCP Prescriptions: New oseltamivir [Tamiflu] 75 mg capsule 75 mg PO BID 5 Days Qty: 10 0RF No Action ketorolac 10 mg tablet 10 mg PO QID PRN (Reason: pain) 5 Days Qty: 20 0RF Rx Instructions: patient received IM 30 toradol in the ED. prednisone 20 mg tablet 60 mg PO DAILY 5 Days Qty: 15 0RF oxycodone-acetaminophen [Percocet] 5-325 mg tablet 1 tab PO TID PRN (Reason: pain) Qty: 9 0RF Rx Instructions: side effect is drowsiness. Do not take at work or while driving. amoxicillin-pot clavulanate 875-125 mg tablet 1 tab PO BID Qty: 20 0RF prednisone 50 mg tablet 50 mg PO DAILY Qty: 5 0RF ondansetron 4 mg tablet,disintegrating 4 mg PO Q8H PRN (Reason: nausea and vomiting) Qty: 10 0RF Stand Alone Forms: Work/School Release Interventions: ED Discharge Assessment Last Done: 07/11/23 21:00 Discharge Date/Time: 07/11/23 21:01 Print Language: Maltese
[2023-07-11 17:02] LABS: Basophils Percent Auto 0.5 % (0-2); Eosinophils Absolute Auto 0.2 X10*3/uL (0.0-0.4); Eosinophils Percent Auto 3.3 % (0-4); Hematocrit 37.5 % (37.0-47.0); Hemoglobin 12.1 g/dl (12.0-16.0); Imm Gran Abs Auto 0.03 X10*3/uL (0.00-0.03); Imm Gran Pct Auto 0.5 % (0.0-0.4); Lymphocytes Absolute Auto 1.3 X10*3/uL (1.2-4.9); Lymphocytes Percent Auto 22.8 % (20-40); Mean Corpuscular HGB Conc 32.3 g/dl (31.0-35.0); Mean Corpuscular Hemoglobin 25.8 pg (27.0-33.0); Mean Platelet Volume 10.3 fL (9.4-12.3); Monocytes Absolute Auto 1.1 X10*3/uL (0.1-1.2); Monocytes Percent Auto 19.2 % (2-11); Neutrophils Absolute Auto 3.1 x10*3/uL (2.0-8.3); Neutrophils Percent Auto 53.7 % (45-73); Platelet Count 153 X10*3/uL (160-400); Red Blood Count 4.69 X10*6/uL (4.20-5.50); Red Cell Distribution Width 18.4 % (11.0-16.0); White Blood Count 5.8 X10*3/uL (4.8-10.8)
[2023-07-11 17:08] LABS: INTERNATIONAL NORM RATIO 1.1 (0.9-1.1); Prothrombin Time 13.4 SEC (11.1-13.3)
[2023-07-11 17:11] LABS: Partial Thromboplastin Time 27.3 SEC (26.0-36.4)
[2023-07-11 17:17] LABS: Alanine Aminotransferase 13 U/L (0-31); Albumin Level 3.9 g/dL (3.5-5.0); Alkaline Phosphatase 74 U/L (39-117); Anion Gap 13 (12-20); Aspartate Amino Transferase 18 U/L (5-31); Bilirubin Total 0.2 mg/dL (0.0-1.0); Blood Urea Nitrogen 9 mg/dL (9-16); Calcium 8.8 mg/dL (8.4-10.2); Carbon Dioxide 26 mmol/L (22-29); Chloride 106 mmol/L (96-108); Creatinine Clr Calc Pharmacy 106.6; Estimated Glomerular Filt Rate > 60; Glucose Random 81 mg/dL (60-115); Potassium 3.7 mmol/L (3.3-5.1); Sodium 141 mmol/L (135-145)
[2023-07-11 17:29] LABS: Troponin-I High Sensitivity < 2.7 ng/L (<3.5-17.0)
[2023-07-11 17:43] LABS: Influenza A PCR POSITIVE (Negative); Influenza B PCR NEGATIVE (Negative); Resp Syncy Virus RNA Qual PCR NEGATIVE (Negative); SARS COV2 PCR INHOUSE NEGATIVE (Negative)
[2023-07-11 19:29] VITALS: BP 141/78; PULSE 71; RESP 18; O2SAT 100
== END 2023-07-11 21:01 | disposition home or self-care (01) ==
PROVIDERS: Physician Assistant; Emergency Provider Internal Medicine
DX: J10.1 Influenza due to other identified influenza virus with other respiratory manifestations (principal); Z11.52 Encounter for screening for COVID-19; J45.909 Unspecified asthma, uncomplicated; Z87.891 Personal history of nicotine dependence
CPT/HCPCS: 0241U; 71046; 80053; 84484; 85025; 85610; 85730; 93005; 99283

== ENCOUNTER 2024-09-24 11:44 | Emergency (ER) | payer OTHER, SELFPAY ==
--- OUTSIDE RECORDS SUMMARY | 2024-09-24 11:52 | XMS_ITS | Data Portability ---
Author Organization [facility], [id number] Address [address] [place] [address] Assessment No assessment recorded. Plan of Treatment Reminders Order Date Submit Date Provider Last Modified By Organization Details Last Modified Time Details Appointments None recorded. Lab None recorded. Referral None recorded. Procedures None recorded. Surgeries None recorded. Imaging XR, elbow, 3 or more view [address], [address] [place], [address], 3 10:16:20 Medication Orders naproxen 500 mg tablet 2022 023 [id number], [address] [place], [address], 3 11:52:05 Patient TargetsNo targets recorded. Patient Instructions Encounter Date Encounter Id Patient Instructions Last Modified By Organization Details Last Modified Time 10/06/2022 [id number] - Educated ramírez alvarez diagnosis of Lateral Epicondylitis. - Discussed about treatment options including conservative and invasive methods. - Rx prescribed as documented. [facility] Indications, contraindications & precautions reviewed. - Discussed about injection of glucocorticoids. patient will follow up with his primary care doctor or orthopedic surgery for further discussion on that. I discussed about use of brace, limitation of excessive supination pronation and range of motion. discussed about use of splints. - Techniques such as injections of Sclerosing polidocanol injections was also discussed. - Discussed regarding avoidance of overuse to prevent further complications - Discussed about role of physical therapy. - All questions were answered. patient was discharged and left in stable condition. garrett Not available 10/06/2022 11:52:02 Reason for Referral None Reported. Problems Name Problem SNOMED Code Status Onset Date Resolution Date Notes Provider Name and Address Organization Details Recorded Time Asthma 163323471 Active 023 JOSE Lam [facility] 3 11:19:55 Arthritis 5995229 Active 023 Smitha garcia [place] - [facility] 3 11:20:19 Problem Notes None recorded. Medical Equipment None Reported. Allergies No known drug allergies Medications Name Sig Start Date Stop Date Status Note LastModified by Organization Details LastModified Time prednisone 50 mg tablet TAKE 1 TABLET BY MOUTH EVERY DAY 10/06 completed Not Available Not Available Not Available lidocaine 5 % topical patch PLACE 1 PATCH TO SKIN FOR A MAX OF 12 HOURS IN ANY 24 HOUR PERIOD DAILY active Not Available Not Available No t Available naproxen 500 mg tablet Take 1 tablet twice a day by oral route with meals for 15 days. 2022 active Not Available Not Available Not Avai lable amoxicillin 875 mg-potassiu m clavulanate 125 mg tablet TAKE 1 TABLET BY MOUTH TWICE A DAY 10/06 completed Not Available Not Available Not Available escitalopra m 10 mg tablet TAKE 1 TABLET BY MOUTH EVERY DAY 10/06 completed Not Available Not Available Not Available cyclobenzap rine 5 mg tablet TAKE 1 TABLET BY MOUTH 3 TIMES DAILY NEEDED FOR MUSCLE SPASMS FOR UP TO 10 DAYS. 10/06 completed Not Available Not Available Not Available sumatriptan active Not Available Not A vailable Not Available diclofenac 1 % topical gel PLACE 1G TOPICALLY DAILY active Not Available Not Available No t Available Vitals Date Recorded Body weight Body mass index (BMI) Body height Oxygen saturation Oxygen saturation in Arterial blood by Pulse oximetry Heart rate Respiratory rate Body temperature Systolic blood pressure Diastolic blood pressure Provider Name and Address Organization Details Last Updated DateTime 3 33138.7 8 g 30.2 kg/m2 154.94 cm 99 % 99 % 64 /min 20 /min 98 [degF] 122 mm[Hg] 81 mm[Hg] Smitha Bradshaw PA - [facility] 3 11:21:27 Social History Question Answer Notes LastModified by Organizat ion Details LastModified Time Tobacco Smoking Status Never Smoker JOSE Lam - [facility] 10/06/2022 11:20:29 What Is Your Level Of Alcohol Consumption? None Information not available 10/06/2022 Have You Had Direct Contact, Or Contact During Intimacy, With Monkeypox Rash, Scabs, Or Body Fluids From A Person With Monkeypox? No Information not available 10/06/2022 Do You Use Any Illicit Or Recreational Drugs? No Information not available 10/06/2022 Have You Recently Traveled Abroad? No Information not available 10/06/2022 Do You Or Have You Ever Used Any Other Forms Of Tobacco Or Nicotine? No Information not available 10/06/2022 Sex: Unknown Functional Status None recorded. Mental Status None recorded. Family History Relationship Description Onset Age of this Age Resolved Age Notes LastModified by Organization Details LastModified Time Father No current problems or disability Not available 10/06 11:20:21 Mother No current problems or disability Not available 10/06 11:20:21 Medical History No medical history recorded. Gynecological HistoryNo gynecological history recorded. Obstetrics History GPAL:G 0 P 0 0 0 0 Past Encounters Encounter ID Performer Location Encounter Start Date Encounter Closed Date Diagnosis/Indication Diagnosis SNOMED-CT Code Diagnosis ICD10 Code Diagnosis Note [id number] [address] [facility] [address] [place] [address] 05/18/2021 09:09:23 05/18/2021 10:53:00 [id number] Garett Fried [facility] [address] [address] [place] [address] 10/06/2022 11:12:45 10/06/2022 12:02:41 Elbow joint - painful on movement 257903453 M25.529 Tendinitis of left elbow 3330075774 4044906 M67.824 Health Concerns Section Related Observation LastModified by Organization Detai ls LastModified Time None Recorded Concern Status LastModified by Organization Details LastModified Time None Recorded Advance Directives Directive None Recorded Payers Encounter Date Sequence Insurance Name Policy Number Policy Cal[place] Covered Member ID Calvert Member ID Guarantor Name 05/18/2021 1 [facility] (MEDICAID REPLACEMENT - HMO) ESTELITA Giordano [id number] Ravindra Giordano 10/06/2022 1 [facility] (MEDICAID REPLACEMENT - HMO) ESTELITA Giordano [id number] Reneajacquelinekeara Teranos Notes Date Note Type Note Provider Name and Address Organization Details Recorded Time 10/06/2022 text/html left elbow pain more on medial side then lateral x 3days. ROM intact, power and strength equal bilaterally. Hx of arthritis. Garett Fried NP [address] [place], [address], [place] - [facility] 10/22/2022 19:28:34 OBGyn Episode No OBEpisode recorded.
[2024-09-24 12:07] VITALS: BP 167/94; PULSE 80; RESP 18; TEMP 36.8; O2SAT 97; BMI 28.6
--- NOTE | 2024-09-24 12:07 | ED.NECK ---
HPI - Neck Pain/Injury General Chief Complaint: General Medical Stated Complaint: Neck pain, heart racing Time Seen by Provider: 09/24/24 15:32 Source: patient Mode of arrival: ambulatory Limitations: no limitations History of Present Illness ED Provider: Dr. Teofilo Garza HPI Narrative: 49-year-old female with a history of hypertension, asthma, migraine headaches, arthritis who presents emergency department for evaluation neck and back pain and a sense of impending doom that occurred in the middle of the night. The patient states that she has been having pain in her neck x1 week. She points to her left trapezius muscle and asked to localize the pain. She states that the pain is intermittent in his 06/26 at its worst. The pain is worse with movement of her head. She states she bends her head forward the pain shoots down her back. She also states she has been having pain in her left wrist but she for arthritis of the wrist. Patient denied fever, chills, numbness, weakness, loss of bowel or bladder control. She states that she was having difficulty sleeping all night secondary to her pain and she woke up in the middle night with the sensation that she was going to . She states she does have an anxiety/panic disorder and needs to take medications for but has been off these medications. Related Data Previous Rx's ?Medication ?Instructions ?Recorded ketorolac 10 mg tablet 10 mg PO QID PRN pain 5 days #20 06/27/21 tabs oxycodone-acetaminophen 5 mg-325 1 tab PO TID PRN pain #9 tabs 06/27/21 mg tablet (Percocet) prednisone 20 mg tablet 60 mg (3 x 20 mg) PO DAILY 5 days 06/27/21 #15 tabs amoxicillin 875 mg-potassium 1 tab PO BID #20 tabs 11/22/21 clavulanate 125 mg tablet prednisone 50 mg tablet 50 mg PO DAILY #5 tabs 01/24/22 ondansetron 4 mg disintegrating 4 mg PO Q8H PRN nausea and 03/18/23 tablet vomiting #10 tabs oseltamivir 75 mg capsule (Tamiflu) 75 mg PO BID 5 days #10 caps 07/11/23 acetaminophen 500 mg tablet 1,000 mg (2 x 500 mg) PO Q6H PRN 09/24/24 (Tylenol Extra Strength) fever or pain #20 tabs cyclobenzaprine 10 mg tablet 10 mg PO TID PRN pain, muscle 09/24/24 spasm #15 tabs ibuprofen 400 mg tablet 400 mg PO TID PRN fever or pain 09/24/24 #30 tabs Allergies Allergy/AdvReac Type Severity Reaction Status Date / Time No Known Allergies Allergy Verified 09/24/24 12:09 [No Known Allergies*] Review of Systems Review of Systems: Yes all other systems are reviewed and are negative [facility] Past Medical History Medical History Asthma Migraines Social History Social History (System 07/05/23 @ 15:04 by Marilu Brooks) Alcohol intake: former Patient Tobacco Use Status: Former Tobacco user Physical Exam Vital Signs: Vital Signs: Last Vital Signs Temp 98.2 F 09/24/24 12:07 Pulse 80 09/24/24 12:07 Resp 18 09/24/24 12:07 BP 167/94 H 09/24/24 12:07 Pulse Ox 97 09/24/24 12:07 O2 Del Method Room Air 09/24/24 12:07 BMI result Body Mass Index 28.6 Vital signs revealed an elevated blood pressure of 167/94 otherwise unremarkable-most likely consistent with her essential hypertension and exacerbated by pain Exam: General: Awake, alert in no distress Head: Normocephalic, atraumatic EENT: PERRL, Lids normal, sclera normal, conjunctiva normal, nose normal , ears normal, throat without erythema or exudates Neck: Patient has tenderness palpation of both trapezius muscles with increased tenderness palpation of the left trapezius muscle insignificant spasm this muscle, increased pain in her neck with minimal movement of her neck Lung: breath sounds symmetric, no wheezing, rales or rhonchi Chest: symmetric movement, nontender Heart: regular rate and rhythm, normal S1, S2 no murmurs or rubs Abdomen: soft, non-tender, nondistended, normal bowel sounds Back: no vertebral tenderness, no CVAT Extremities: no deformities, moves all extremities symmetrically Neuro: Awake, alert, oriented, normal speech, cranial nerves intact, moves all extremities symmetrically Psych: Pleasant, cooperative Course Course Course Narrative: This is a Rapid Medical Exam performed in triage by Vandana Montenegro PA-C. Full HPI, ROS and PE to be performed by primary ED provider. 49 yo F w/pmhx asthma, migranes presenting to the ED c/o low back and neck pain x1 week. denies injury/fall, numbness/tingling, RENO's. Also reports palpitations this morning & felt like I was going to . Denies CP, SOB, RENO or other assoc sx PE: ambulating w/steady gait, no focal deficits Plan: EKG, labs Medical Decision Making Medical Decision Making [facility] Narrative: 49-year-old female with a history of hypertension, asthma, migraine headaches, arthritis who presents emergency department for evaluation neck and back pain and a sense of impending doom that occurred in the middle of the night. Patient was had neck pain x1 week, worse with movement with pain radiating down her back with no other concerning neurological signs and no fever or chills. Patient has vital signs did reveal an elevated blood pressure but this is most likely secondary to her essential hypertension and pain. Exam did reveal tenderness palpation of her trapezius muscles with spasm of the left trapezius muscle. Differential diagnosis: ?Includes but is not limited to musculoskeletal sprain, musculoskeletal strain, degenerative disc disease, degenerative joint disease, muscle spasm, anxiety attack/panic attack, myocardial infarction, myocardial ischemia, aortic dissection Course: 14:04 My interpretation patient's laboratory evaluation as follows: CBC was normal. CMP was normal. Troponin was below detectable limits. Patient's 12 EKG revealed no evidence for ischemia or infarction. Patient's exam is consistent with inflammation and spasm of bilateral trapezius muscles with increased spasm of the left trapezius muscle. Patient also had a panic attack last night most likely triggered by her pain and not sleeping well. Patient was prescribed Tylenol and ibuprofen for pain and cyclobenzaprine for spasm. She was given printed and verbal instructions and discharged home. Admission/Observation Consideration of admission/observation: Escalation of care including admission/observation considered (Yes) Lab Data [facility] Lab Attestation statement: I reviewed the patient's lab results. 09/24/24 12:18 09/24/24 12:18 Labs: Lab Results 09/24/24 Range/Units 12:18 WBC 10.4 (4.8-10.8) X10*3/uL RBC 4.90 (4.20-5.50) X10*6/uL Hgb 13.8 (12.0-16.0) g/dl Hct 41.0 (37.0-47.0) % MCV 83.7 (80.0-98.0) fL MCH 28.2 (27.0-33.0) pg MCHC 33.7 (31.0-35.0) g/dl RDW 13.2 (11.0-16.0) % Plt Count 210 D (160-400) X10*3/uL MPV 10.4 (9.4-12.3) fL Immature Gran % (Auto) 0.4 (0.0-0.4) % Neut % (Auto) 73.4 H (45-73) % Lymph % (Auto) 14.8 L (20-40) % [place] % (Auto) 9.1 (2-11) % Eos % (Auto) 2.0 (0-4) % Baso % (Auto) 0.3 (0-2) % Lymph # (Auto) 1.5 (1.2-4.9) X10*3/uL [place] # (Auto) 0.9 (0.1-1.2) X10*3/uL Eos # (Auto) 0.2 (0.0-0.4) X10*3/uL Baso # (Auto) 0.0 (0.0-0.2) X10*3/uL Abs Immat Gran (auto) 0.04 H (0.00-0.03) X10*3/uL Absolute Neuts (auto) 7.6 (2.0-8.3) x10*3/uL Absolute Nucleated RBC 0.000 (0.0-0.012) X10*3/uL Nucleated RBC % (auto) 0.0 (0.0-0.2) /100WBC Sodium 141 (135-145) mmol/L Potassium 3.7 (3.3-5.1) mmol/L Chloride 105 (96-108) mmol/L Carbon Dioxide 27 (22-29) mmol/L Anion Gap 13 (12-20) BUN 10 (9-16) mg/dL Creatinine 0.68 (0.5-1.4) mg/dL Estim Creat Clear Calc 90.6 Estimated GFR > 60 Random Glucose 112 (60-115) mg/dL Calcium 9.1 (8.4-10.2) mg/dL Magnesium 2.1 (1.6-2.6) mg/dL Total Bilirubin 0.6 (0.0-1.0) mg/dL Direct Bilirubin 0.2 (0.0-0.5) mg/dL AST 24 (5-31) U/L ALT 14 (0-31) U/L Alkaline Phosphatase 68 (39-117) U/L Troponin I High Sens < 2.7 (<3.5-17.0) ng/L Total Protein 7.7 (6.5-8.0) g/dL Albumin 4.3 (3.5-5.0) g/dL Independent Interpretation Interpretation: My independent interpretation patient's 12 EKG done at 12:14 hours is as follows: Normal sinus rhythm rate of 74, normal CA interval, QRS duration and QTC interval, no ST segment elevation, no ST segment depression, no PACs, no PVCs, no significant T-wave abnormalities Prescription Management I considered prescription management with: Pain Medication (Tylenol and ibuprofen) and Other (Anti spasmodic, cyclobenzaprine) Chronic Conditions Patient?s care impacted by: Hypertension Discharge Plan Discharge Clinical Impression: Acute cervical myofascial strain, Anxiety attack Patient Disposition: Home, Self-Care Instructions: Cervical Sprain (ED) Additional Instructions: Your blood work was normal. Your EKG was unremarkable which is reassuring I also believe that you had a panic attack in the middle of the night which may have been caused by your neck pain and not sleeping well Your exam did reveal spasm and tenderness of your neck muscles especially on the left side of your neck. This is consistent with a sprain of these muscles Take ibuprofen for h400 mg pills, 1 pills every 6 hours as needed for pain or fever. Take Tylenol (acetaminophen) 500 mg pills, 2 pills every 6 hours as needed for pain or fever. Take Flexeril (cyclobenzaprine) 10 mg pills, 1 pill every 6-8 hours as needed for pain or spasm. ?This medication will make you sleepy. ?Do not drive or work while taking this medication. Follow-up with your doctor in 2 days. Please return to the emergency department if your symptoms get worse or if you develop any symptoms that are concerning to you. Prescriptions: New cyclobenzaprine 10 mg tablet 10 mg PO TID PRN (Reason: pain, muscle spasm) Qty: 15 0RF acetaminophen [Tylenol Extra Strength] 500 mg tablet 1,000 mg PO Q6H PRN (Reason: fever or pain) Qty: 20 0RF ibuprofen 400 mg tablet 400 mg PO TID PRN (Reason: fever or pain) Qty: 30 0RF No Action ketorolac 10 mg tablet 10 mg PO QID PRN (Reason: pain) 5 Days Qty: 20 0RF Rx Instructions: patient received IM 30 toradol in the ED. prednisone 20 mg tablet 60 mg PO DAILY 5 Days Qty: 15 0RF oxycodone-acetaminophen [Percocet] 5-325 mg tablet 1 tab PO TID PRN (Reason: pain) Qty: 9 0RF Rx Instructions: side effect is drowsiness. Do not take at work or while driving. amoxicillin-pot clavulanate 875-125 mg tablet 1 tab PO BID Qty: 20 0RF prednisone 50 mg tablet 50 mg PO DAILY Qty: 5 0RF oseltamivir [Tamiflu] 75 mg capsule 75 mg PO BID 5 Days Qty: 10 0RF ondansetron 4 mg tablet,disintegrating 4 mg PO Q8H PRN (Reason: nausea and vomiting) Qty: 10 0RF Print Language: Thai
--- NOTE | 2024-09-24 12:09 | ECG_ITS ---
Test Reason : palpitations Blood Pressure : */* mmHG Vent. Rate : 74 BPM Atrial Rate : 74 BPM P-R Int : 174 ms QRS Dur : 82 ms QT Int : 392 ms P-R-T Axes : 33 -17 29 degrees QTcB Int : 435 ms Normal sinus rhythm Normal ECG When compared with ECG of 11-Jul-2023 16:45, No significant change was found Referred By: Vandana Montenegro Electronically Signed By: CONCEPCION DONOVAN
[2024-09-24 12:23] LABS: MANUAL DIFF FLAG NO
[2024-09-24 12:25] LABS: Basophils Percent Auto 0.3 % (0-2); Eosinophils Absolute Auto 0.2 X10*3/uL (0.0-0.4); Hemoglobin 13.8 g/dl (12.0-16.0); Imm Gran Abs Auto 0.04 X10*3/uL (0.00-0.03); Imm Gran Pct Auto 0.4 % (0.0-0.4); Lymphocytes Absolute Auto 1.5 X10*3/uL (1.2-4.9); Lymphocytes Percent Auto 14.8 % (20-40); Mean Corpuscular HGB Conc 33.7 g/dl (31.0-35.0); Mean Corpuscular Hemoglobin 28.2 pg (27.0-33.0); Mean Corpuscular Volume 83.7 fL (80.0-98.0); Mean Platelet Volume 10.4 fL (9.4-12.3); Monocytes Absolute Auto 0.9 X10*3/uL (0.1-1.2); Monocytes Percent Auto 9.1 % (2-11); Neutrophils Absolute Auto 7.6 x10*3/uL (2.0-8.3); Neutrophils Percent Auto 73.4 % (45-73); Platelet Count 210 X10*3/uL (160-400); Red Cell Distribution Width 13.2 % (11.0-16.0); White Blood Count 10.4 X10*3/uL (4.8-10.8)
[2024-09-24 12:37] LABS: Alanine Aminotransferase 14 U/L (0-31); Albumin Level 4.3 g/dL (3.5-5.0); Alkaline Phosphatase 68 U/L (39-117); Anion Gap 13 (12-20); Aspartate Amino Transferase 24 U/L (5-31); Bilirubin Direct 0.2 mg/dL (0.0-0.5); Bilirubin Total 0.6 mg/dL (0.0-1.0); Blood Urea Nitrogen 10 mg/dL (9-16); Calcium 9.1 mg/dL (8.4-10.2); Carbon Dioxide 27 mmol/L (22-29); Chloride 105 mmol/L (96-108); Creatinine Clr Calc Pharmacy 90.6; Estimated Glomerular Filt Rate > 60; Glucose Random 112 mg/dL (60-115); Magnesium 2.1 mg/dL (1.6-2.6); Potassium 3.7 mmol/L (3.3-5.1); Sodium 141 mmol/L (135-145); Total Protein 7.7 g/dL (6.5-8.0)
[2024-09-24 12:44] LABS: Troponin-I High Sensitivity < 2.7 ng/L (<3.5-17.0)
[2024-09-24 15:50] VITALS: BP 153/87; PULSE 67; RESP 16; TEMP 37.3; O2SAT 99
[2024-09-24 16:03] VITALS: BP 153/87; PULSE 67; RESP 16; TEMP 37.3; O2SAT 99
== END 2024-09-24 16:03 | disposition home or self-care (01) ==
PROVIDERS: Physician Assistant; Emergency Provider Emergency Medicine Emergency Medical Services; PCP Internal Medicine
DX: M54.2 Cervicalgia (principal); F41.9 Anxiety disorder, unspecified; R00.2 Palpitations; Z79.899 Other long term (current) drug therapy
CPT/HCPCS: 36415; 80048; 80076; 83735; 84484; 85025; 93005; 99283

== ENCOUNTER → 2024-09-24 12:09 | Outpatient (BNV) | payer OTHER, SELFPAY | PROVIDERS: Emergency Provider Emergency Medicine Emergency Medical Services; PCP Internal Medicine; Visit Provider Internal Medicine | DX: R00.2 Palpitations (principal) | CPT/HCPCS: 93010 ==

== ENCOUNTER 2025-01-18 09:55 | Emergency (ER) | payer OTHER, SELFPAY ==
--- NOTE | ~2025-01-18 | XR_ITS ---
CLINICAL HISTORY: nontraumatic low back pain 3 views lumbar spine Comparison: None Findings: Normal alignment. No acute fractures or dislocation. Multilevel disc space narrowing and endplate osteophyte formation, as well as facet hypertrophy. IMPRESSION: No acute findings. This document has been electronically signed by: Alexandre Longo MD on 01/18/2025 13:11:04
[2025-01-18 10:38] VITALS: BP 155/75; PULSE 75; RESP 20; TEMP 37.2; O2SAT 97; BMI 29.1
--- NOTE | 2025-01-18 12:16 | ED_ITS ---
HPI - Back Pain/Injury General Chief Complaint: Back Pain/Injury Stated Complaint: lower back pain Time Seen by Provider: 01/18/25 12:16 Source: patient Limitations: no limitations History of Present Illness ED Provider: Sven Alexandra PA-C HPI Narrative: 50 yo female presents to the ER for evaluation of acute onset of left lower back pain that started last night after driving home from [place]. She reports the pain is sharp, severe and worse with movement. it does not radiate. no numbness or weakness in the leg. no GI/ symptoms. she states she took tylenol last night but could not get comfortable and did not sleep well. no falls. history of a pinched nerve in her back in the past but this does not feel similar. pain at rest is minimum. MD elicited complaint: back pain Pertinent past history: prior back pain Onset (ago): hour(s) Timing: intermittent Severity: severe Similar Symptoms Previously: Yes Quality: sharp Location: left lower back Radiation: none Exacerbating factors: movement Relieving factors: immobilization Context: unknown Associated symptoms: denies other symptoms Treatments prior to arrival: acetaminophen Work related injury: No Related Data Previous Rx's ?Medication ?Instructions ?Recorded ketorolac 10 mg tablet 10 mg PO QID PRN pain 5 days #20 06/27/21 tabs oxycodone-acetaminophen 5 mg-325 1 tab PO TID PRN pain #9 tabs 06/27/21 mg tablet (Percocet) prednisone 20 mg tablet 60 mg (3 x 20 mg) PO DAILY 5 days 06/27/21 #15 tabs amoxicillin 875 mg-potassium 1 tab PO BID #20 tabs 11/22/21 clavulanate 125 mg tablet prednisone 50 mg tablet 50 mg PO DAILY #5 tabs 01/24/22 ondansetron 4 mg disintegrating 4 mg PO Q8H PRN nausea and 03/18/23 tablet vomiting #10 tabs oseltamivir 75 mg capsule (Tamiflu) 75 mg PO BID 5 days #10 caps 07/11/23 acetaminophen 500 mg tablet 1,000 mg (2 x 500 mg) PO Q6H PRN 09/24/24 (Tylenol Extra Strength) fever or pain #20 tabs cyclobenzaprine 10 mg tablet 10 mg PO TID PRN pain, muscle 09/24/24 spasm #15 tabs ibuprofen 400 mg tablet 400 mg PO TID PRN fever or pain 09/24/24 #30 tabs cyclobenzaprine 10 mg tablet 10 mg PO TID PRN muscle spasticity 01/18/25 #10 tabs lidocaine 5 % topical patch 1 patch topical DAILY #15 ea 01/18/25 naproxen 500 mg tablet 500 mg PO BID PRN pain #20 tabs 01/18/25 Allergies Allergy/AdvReac Type Severity Reaction Status Date / Time No Known Allergies Allergy Verified 01/18/25 10:38 [No Known Allergies*] Review of Systems Review of Systems: Yes all other systems are reviewed and are negative [facility] Past Medical History Medical History Asthma Migraines Social History Social History (System 07/05/23 @ 15:04 by Marilu Brooks) Alcohol intake: former Patient Tobacco Use Status: Former Tobacco user Smoked in Last 30 Days: No Use of substances other than those prescribed or required for medical reasons: No Advance Directives: No Advance Directives Information Provided: Yes Patient : No Physical Exam Vital Signs: Vital Signs: Last Vital Signs Temp 97.9 F 01/18/25 13:03 Pulse 69 01/18/25 13:03 Resp 20 01/18/25 13:03 BP 113/41 L 01/18/25 13:03 Pulse Ox 96 01/18/25 13:03 O2 Del Method Room Air 01/18/25 13:03 BMI result Body Mass Index 29.1 Appearance: Alert. Oriented X3. No acute distress. HEENT: normal external inspection Neck: Normal inspection. CVS: Normal heart rate and rhythm. Pulses normal. Respiratory: No respiratory distress. Breath sounds normal. Abdomen: Soft and nontender. +BS x4 Back: soft tissue tenderness of the middle and lower lumbar areas, no CVA tenderness. negative straight leg raise test Skin: Skin warm and dry. Normal skin color. Normal skin turgor. No rashes. Extremities: No lower extremity edema. No joint swelling. Neuro/psych: Oriented X 3. No motor deficit. No sensory deficit. CN II-XII intact. Normal speech and cognition. slow but steady gait Medications Administered Discontinued Medications Generic Name Dose Route Start Last Admin Trade Name Freq PRN Reason Stop Dose Admin Ketorolac Tromethamine 30 mg 01/18/25 12:26 01/18/25 13:12 Ketorolac Tromethamine 30 Mg/Ml Vial IM 01/18/25 12:27 30 mg ONCE ONE Administration Lidocaine 1 patch 01/18/25 12:26 01/18/25 13:12 Lidocaine 4 % Patch Adh..Patch TRANSDERMA 01/18/25 12:27 1 patch ONCE ONE Administration Protocol Oxycodone HCl 5 mg 01/18/25 12:26 01/18/25 13:12 Oxycodone Hcl Immed Release 5 Mg Tablet PO 01/18/25 12:27 5 mg ONCE ONE Administration Medical Decision Making Medical Decision Making [facility] Narrative: 50 yo female presenting to the ER for evaluation of left lower back pain after being in the car for over an hour yesterday. no leg pain or swelling. no urinary symptoms. no red flag symptoms of LBP. XR today is normal UA without blood or infection given pain medication here with improvement in her symptoms. pain likely muscular in nature. will treat accordingly, encourage outpatient follow up. stable for d/c home. Differential Diagnosis Differential Diagnoses: The differential diagnosis associated with the presentation includes Inflammatory disorders, malignancy, trauma, osteoporosis, nerve root compression, radiculopathy, plexopathy, degenerative disc disease, disc herniation, spinal stenosis, sacroiliac joint dysfunction, facet joint injury, and less likely infection?like abscess or diskitis Lab Data [facility] Lab Attestation statement: I reviewed the patient's lab results. no infection Labs: Lab Results 01/18/25 Range/Units 13:53 Urine Color Yellow Urine Appearance Clear Urine pH 5.5 (5.0-9.0) Ur Specific [place] 1.010 (1.005-1.025) Urine Protein Negative (Neg-Trace) mg/dL Urine Glucose (UA) Negative (Negative) mg/dL Urine Ketones Negative (Negative) mg/dL Urine Blood Small (1+) H (Negative) Urine Nitrite Negative (Negative) Ur Leukocyte Esterase Small (1+) H (Negative) Urine Test NEGATIVE (NEGATIVE) Independent Interpretation I performed an independent interpretation of an: Plain X-Ray Interpretation: no acute fx apprecaited Radiology Impression Discussion of test interpretation with radiology: I have reviewed the radiologis t's reading. External Record Review External record reviewed: Outpatient record, Prior outpatient labs and Prior outpatient radiology Prescription Management I considered prescription management with: Pain Medication and Other (NSAID, steroid, muscle relaxer) Critical Care Time Critical Care Time Critical Care Time: No Discharge Plan Discharge Clinical Impression: Strain of lumbar region Qualifiers: Encounter type: initial encounter Qualified Code(s): S39.012A - Strain of muscl e, fascia and tendon of lower back, initial encounter Patient Disposition: Home, Self-Care Instructions: Low Back Strain (ED), Lower Back Exercises (ED) Additional Instructions: Your x-ray today was normal. Your pain is most likely due to muscle strain and spasm. No bending, lifting or twisting. Use ice several times per day for 20 minutes at a time for the next 48 hours and then change to heat. Take medications as prescribed to help with pain and discomfort. Follow up with your Primary Care Doctor this week. If your pain worsens, if you develop new numbness, tingling, weakness, loss of function or incontinence call 911 or come back to the ER right away for evaluation. Prescriptions: New cyclobenzaprine 10 mg tablet 10 mg PO TID PRN (Reason: muscle spasticity) Qty: 10 0RF lidocaine 5 % adhesive patch,medicated 1 patch topical DAILY Qty: 15 0RF Rx Instructions: leave on most painful area for up to 12 hrs naproxen 500 mg tablet 500 mg PO BID PRN (Reason: pain) Qty: 20 0RF No Action ketorolac 10 mg tablet 10 mg PO QID PRN (Reason: pain) 5 Days Qty: 20 0RF Rx Instructions: patient received IM 30 toradol in the ED. prednisone 20 mg tablet 60 mg PO DAILY 5 Days Qty: 15 0RF oxycodone-acetaminophen [Percocet] 5-325 mg tablet 1 tab PO TID PRN (Reason: pain) Qty: 9 0RF Rx Instructions: side effect is drowsiness. Do not take at work or while driving. amoxicillin-pot clavulanate 875-125 mg tablet 1 tab PO BID Qty: 20 0RF prednisone 50 mg tablet 50 mg PO DAILY Qty: 5 0RF oseltamivir [Tamiflu] 75 mg capsule 75 mg PO BID 5 Days Qty: 10 0RF cyclobenzaprine 10 mg tablet 10 mg PO TID PRN (Reason: pain, muscle spasm) Qty: 15 0RF acetaminophen [Tylenol Extra Strength] 500 mg tablet 1,000 mg PO Q6H PRN (Reason: fever or pain) Qty: 20 0RF ibuprofen 400 mg tablet 400 mg PO TID PRN (Reason: fever or pain) Qty: 30 0RF ondansetron 4 mg tablet,disintegrating 4 mg PO Q8H PRN (Reason: nausea and vomiting) Qty: 10 0RF Referrals: Arjun Weiss MD [Primary Care Provider] - Print Language: Belarusian
--- OUTSIDE RECORDS SUMMARY | 2025-01-18 12:20 | XMS_ITS | Encounter Summary ---
Author Organization [facility] Address [address] [place] [address] Care Team Providers Care Vibration Engineer Name Role Phone Arjun Weiss MD Primary Care Provider [phone] Reason for Visit * Consultation (Routine) - Authorized Specialty Diagnoses / Procedures Referred By Contac t Referred To Contact Physical Therapy Diagnoses Acute left-sided low back pain with left-sided sciatica Arjun Weiss MD [address] [place] [address] Phone: tel: fax: Outpatient Rehabilitation - [address] Phone: tel: fax: Referral ID Status Reason Start Date Expiration Date Visits Requested Visits Authorized [id number] Authorized Specialty Services Required 10/14/2024 10/14/2025 21 21 Encounter Details Date Type Department Care Team (Late st Contact Info) Description 01/16/2025 11:00 AM EDT Treatment Outpatient Rehabilitation - [address] [phone] Maggy Renee PTA Bursitis of left shoulder (Primary Dx) Social History Tobacco Use Types Packs/Day Years Used Date Smoking Tobacco: Former Cigarettes Smokeless Tobacco: Never Alcohol Use Standard Drinks/Week Comments No 0 (1 standard drink = 0.6 oz pur e alcohol) Health Literacy Answer Date Recorded How often do you need to hav e someone help you when you read instructions, pamphlets, or other written material from your doctor or pharmacy? Rarely 10/13/2024 Caregiver: How often do you need to have someone help you when you read instructions, pamphlets, or other written material from your doctor or pharmacy? Not on file 10/13/2024 Transportation Answer Date Recorded Has the lack of transportati on kept you from meetings, work, or from getting things needed for daily living? No Has the lack of transportati on kept you from medical appointments or from getting medications? No 10/13/2024 Social Isolation Answer Date Recorded How often do you feel lonely or isolated from those around you? Sometimes 10/13/2024 Food Risk Answer Date Recorded Within the past 12 months we worried whether our food would run out before we got money to buy more. Never true 10/13/2024 Within the past 12 months th e food we bought just didn't last and we didn't have money to get more. Never true 10/13/2024 Dependent Care Answer Date Recorded Do you need help finding or paying for care for your loved ones. For example, early childhood teacher assistant or elderly care for an older adult? No 10/13/2024 Education Answer Date Recorded Do you think completing more education or training, like finishing a GED, going to college, or learning a trade, would be helpful for you? No 10/13/2024 Employment and Income Answer Date Recor ded During the last four weeks, have you been actively looking for work? No 10/13/2024 Comments No Sex and Gender Information Value Date Recorded Sex Assigned at Not on file Legal Sex Female 3:59 AM EST Gender Identity Not on file Sexual Orientation Not on file documented as of this encounter Progress Notes * Maggy Renee, CHEFS - 01/16/2025 11:00 AM EDT [facility] - Outpatient PHYSICAL THERAPY DAILY TREATMENT NOTE - OP Date: 01/16/2025 Visit Number: 3 Patient Name: Renea Giordano : 1975 Age: 50 y.o. Gender: female Diagnosis: ICD-10-CM ICD-9-CM 1. Bursitis of left shoulder M75.52 726.10 Date of Onset/Surgery: 01/02/2023 Referring Provider: Arjun Weiss MD Insurance: Payor: [facility] PLAN / Plan: [facility] MEDICAID / Product Type: *No Product type* / Patient Identified by: Maggy Renee PTA Language: Nepalese Medications: Current Outpatient Medications on File Prior to Visit Medication Sig Dispense Refill albuterol HFA (PROAIR HFA ; PROVENTIL HFA ; VENTOLIN HFA) 90 mcg/actuation inhaler Inhale 2 puffs by mouth every 4 (four) hours if needed for wheezing. 6.7 g 2 nlmsjak-ufdourqqarlej-dbbqkkks (EXCEDRIN MIGRAINE) 250-250-65 mg per tablet Take 1 Tablet by mouth every 8 hours as needed (headache). bisacodyL (DULCOLAX) 5 mg EC tablet Take 2 tablets by mouth right before beginning bowel prep. See instructions provided by the office 2 tablet 0 bisacodyL (DULCOLAX) 5 mg EC tablet Take 2 tablets by mouth right before beginning bowel prep. See instructions provided by the office 2 tablet 0 cholecalciferol (VITAMIN D-3) 50 mcg (2,000 unit) tablet Take 1 Tablet by mouth daily. cyanocobalamin (VITAMIN B-12) 1,000 mcg tablet Take 1 tablet (1,000 mcg total) by mouth 3 (three) times a week. 90 tablet 1 cyclobenzaprine (FLEXERIL) 5 mg tablet Take 1 tablet (5 mg total) by mouth at bedtime. 30 tablet 0 diclofenac (VOLTAREN) 1 % topical gel Apply 2 g topically 2 (two) times a day. 100 g 0 gabapentin (NEURONTIN) 100 mg capsule Take 1 capsule (100 mg total) by mouth at bedtime. 30 each 2 metoprolol succinate (TOPROL-XL) 25 mg 24 hr tablet Take 1 tablet (25 mg total) by mouth 1 (one) time each day. Do not crush or chew. 90 tablet 1 polyethylene glycol (Golytely) 236-22.74-6.74 -5.86 gram solution Take 4L by mouth once for one dose. May substitue any PEG. Starting at 6PM the night before your procedure drink 1 8oz glasses at your own pace until you complete half of the gallon. Finish 2nd half of the gallon 5 hours before your procedure. 4000 mL 0 polyethylene glycol (Golytely) 236-22.74-6.74 -5.86 gram solution Take 4L by mouth once for one dose. May substitue any PEG. Starting at 6PM the night before your procedure drink 1 8oz glasses at your own pace until you complete half of the gallon. Finish 2nd half of the gallon 5 hours before your procedure. 4000 mL 0 SUMAtriptan (IMITREX) 50 mg tablet Take 1 tablet (50 mg total) by mouth See administration instructions. 1 Tablet by mouth daily as needed for Migraine. May repeat dose once after 2 hours, if needed.9 tablet 2 No current facility-administered medications on file prior to visit. Allergies: has No Known Allergies. Precautions: Fall risk: No SUBJECTIVE Subjective Report: Shoulder is feeling better Chart Reviewed: Yes Pain 0/10 OBJECTIVE TREATMENT INTERVENTION: UBE 3/3 Standing scap row 2 x 10 with green cord JOHNSON shoulder ext green cord 2x10 Supine (B) ER green tband 3x10 Prone shoulder ext 1# 2x10 Prone horiz abd 2x10 inferior glides w/ L UE in ext, add and IR. Grades as tolerated. Gentle stretching btw bouts. 5 min ASSESSMENT/Response to Treatment Good Progressed scap strengthening, mild TTP in supra tendon still Patient Education: Education provided: Yes Education Provided To: Patient utilizing Demonstration mode(s) of education Response to Education: Verbal Understanding PLAN POC Development/Review: No Change in the Plan of Care; Participants: Patient Total Treatment Time: 30 Modalities: Therapeutic procedures: Documentation completed by Maggy Renee PTA documented in this encounter Plan of Treatment Upcoming Encounters Date Type Department Care Team (Latest Contact Info) Description 01/21/2025 10:00 AM EDT Treatment Outpatient [facility] [address] [place] [address] Maggy Renee PTA 01/22/2025 1:00 PM EDT Hospital Encounter [facility] Endoscopy [address] [place] [phone] Marley Healy MD [address] [address] 01/23/2025 10:00 AM EDT Treatment Outpatient Rehabilitation - [address] [phone] Maggy Renee, CHEFS 01/28/2025 10:00 AM EDT Treatment Outpatient Rehabilitation - [address] [phone] Maggy Rneee, CHEFS 01/30/2025 10:00 AM EDT Treatment Outpatient Rehabilitation - [address] [phone] Maggy Renee, CHEFS 02/04/2025 10:00 AM EDT Treatment Outpatient Rehabilitation - [address] [phone] Mk Lockwood, PT 03/09/2025 2:00 PM EDT Appointment [facility] Neurodiagnostic [address] [place] [phone] 04/02/2025 11:00 AM EDT Office Visit Orthopedic Surgery - [facility] [address] [facility] [address] [place] [phone] Isi Breaux PA [address] [facility] [address] [place] [address] documented as of this encounter Goals Goal Patient Goal Type Associated Problems Recent Progress Patient-Stated? Author STG's 6 visits General Yes Mk Lockwood, PT Note: Pt will demonstrate L shoulder flex to 155 degrees or better for overhead IADL's. Pt will report waking no more than 1x/night, 3 or less night per week. Pt will report lifting 15 lbs or better w/out increased L shoulder pain. Pt is Independent and compliant with initial HEP. LTG's 12 visits General Yes Mk Lockwood, PT Note: Pt will demonstrate L shoulder flex to 160 degrees or better for overhead IADL's. Pt will report waking no more than 1x/night, 1 or less night per week. Pt will report lifting 20 lbs or better w/out increased L shoulder pain. Pt will be Independent and compliant with final HEP. documented as of this encounter Visit Diagnoses Diagnosis Bursitis of left shoulder- Primary documented in this encounter Additional Health Concerns Assessment Noted Time PHQ-9 Depression Total Score: 0 10/13/19 25 3:52 PM EST documented as of this encounter Care Teams Vibration Engineer Relationship Specialty Start Date End Date Arjun Weiss MD [address] [place] [address] PCP - General Internal Medicine 01/30/22 documented as of this encounter
--- OUTSIDE RECORDS SUMMARY | 2025-01-18 12:20 | XMS_ITS | Data Portability ---
Author Organization [facility], [id number] Address [address] [place] [address] Assessment No assessment recorded. Plan of Treatment Reminders Order Date Submit Date Provider Last Modified By Organization Details Last Modified Time Details Appointments None recorded. Lab None recorded. Referral None recorded. Procedures None recorded. Surgeries None recorded. Imaging XR, elbow, 3 or more view [address], [address] [place], [address], 3 10:16:20 Medication Orders naproxen 500 mg tablet 2022 023 [id number], [address] [place], [address], 11:52:05 Patient TargetsNo targets recorded. Patient Instructions Encounter Date Encounter Id Patient Instructions Last Modified By Organization Details Last Modified Time 10/06/2022 [id number] - Educated ramírez alvarez diagnosis of Lateral Epicondylitis. - Discussed about treatment options including conservative and invasive methods. - Rx prescribed as documented. [facility] Indications, contraindications & precautions reviewed. - Discussed [...] and Address Organization Details Recorded Time Asthma 878858741 Active 023 Smitha garcia PA [facility] 3 11:19:55 Arthritis 5979665 Active 023 Smitha garcia PA - [facility] [...] saturation in Arterial blood by Pulse oximetry Pain severity - 0-10 verbal numeric rating [Score] - Reported Heart rate Respiratory rate Body temperature Systolic blood pressure Diastolic blood pressure Provider Name and Address Organization Details Last Updated DateTime 3 63273.7 8 g 30.2 kg/m2 154.94 cm 99 % 99 % 6 64 /min 20 /min 98 [degF] 122 [...] SNOMED-CT Code Diagnosis ICD10 Code Diagnosis Note [id number] [address] [facility] [address] [place] [address] 05/18/2021 09:09:23 05/18/2021 10:53:00 [id number] Garett Fried, HALL CLERK [address] [facility] [address] [place] [address] 10/06/2022 11:12:45 10/06/2022 12:02:41 Elbow joint - painful on movement 533600274 M25.529 Tendinitis of left elbow 8805896393 [id number] M67.824 Health Concerns Section Related Observation LastModified by Organization Detai ls LastModified Time None Recorded Concern Status LastModified by Organization Details LastModified Time None Recorded Advance Directives Directive None Recorded Payers Encounter Date Sequence Insurance Name Policy Number Policy Calvert Covered Member ID Calvert Member ID Guarantor Name 05/18/2021 1 [facility] (MEDICAID REPLACEMENT - HMO) ESTELITA Valadez Giordano [id number] Ravindra Giordano 10/06/2022 1 [facility] (MEDICAID REPLACEMENT - HMO) ESTELITA Valadez Giordano [id number] Ravindra Giordano Notes Date Note Type Note Provider Name and Address Organization Details Recorded Time 10/06/2022 text/html left elbow pain more on medial side then lateral x 3days. ROM intact, power and strength equal bilaterally. Hx of arthritis. Garett Fried NP [address] [place], [address], [place] - [facility] 10/22/2022 19:28:34 OBGyn Episode No OBEpisode recorded.
[2025-01-18 13:03] VITALS: BP 113/41; PULSE 69; RESP 20; TEMP 36.6; O2SAT 96
[2025-01-18] MEDS: oxyCODONE HCl Immed Release 5 MG TABLET PO (13:12)
[2025-01-18] MEDS: Lidocaine 4 % Patch ADH..PATCH 1 PATCH TRANSDERMA (13:12)
[2025-01-18] MEDS: Ketorolac Tromethamine 30 MG/ML VIAL IM (13:12)
[2025-01-18 14:04] LABS: Appearance Urine Clear; Color Urine Yellow; Glucose Urine UA Negative (Negative); Leukocyte Esterase Urine Small (1+) (Negative); Nitrite Urine Negative (Negative); PH 5.5 (5.0-9.0); UMIC TRIGGER UACC YES; Urine Blood Small (1+) (Negative); Urine Ketones Negative (Negative); Urine Protein Negative (Neg-Trace)
[2025-01-18 14:07] LABS: UPreg QC Valid YES; Urine Pregnancy NEGATIVE (NEGATIVE)
[2025-01-18 14:16] LABS: Bacteria Urine Trace (None Seen); Hyaline Casts Urine 0-2 /LPF (0-2); RBC Urine 0-2 /HPF (0-2); Squamous Epithelial Cell Urine 0-2 /HPF (0-2); UACC Culture Trigger YES; WBC Urine 0-5 /HPF (0-5)
[2025-01-18 14:22] VITALS: BP 113/41; PULSE 69; RESP 20; TEMP 36.6; O2SAT 96
== END 2025-01-18 14:23 | disposition home or self-care (01) ==
PROVIDERS: Physician Assistant; Emergency Provider Emergency Medicine; PCP Internal Medicine
DX: M54.50 Low back pain, unspecified (principal); Z87.891 Personal history of nicotine dependence; Z79.899 Other long term (current) drug therapy
CPT/HCPCS: 72100; 81001; 81025; 87086; 96372; 99284; J1885

== ENCOUNTER → 2025-01-18 11:20 | Outpatient (BNV) | payer OTHER, SELFPAY | PROVIDERS: Emergency Provider Emergency Medicine; PCP Internal Medicine; Visit Provider Radiology Diagnostic Radiology | DX: M54.50 Low back pain, unspecified (principal) | CPT/HCPCS: 72100 ==